=== PATIENT | female | born 1955 | race Two or more races ===

== ENCOUNTER 2022-05-29 04:08 | Inpatient (IN) | payer MEDICARE, OTHER ==
[~2022-05-29] VITALS: Ht 167.6 cm; Wt 150.1 kg
[2022-05-29 04:57] LABS: Basophils # (auto) 0.1 10 ^3/uL (0-0.2); Basophils % (auto) 0.3 % (0.0-2.0); Eosinophils # (auto) 0 10 ^3/uL (0-0.8); Eosinophils % (auto) 0.3 % (0.0-7.0); Hematocrit 33.6 % (36.0-46.0); Hemoglobin 10.5 g/dL (12.2-16.2); Lymphocytes # (auto) 0.5 10 ^3/uL (0.4-5.4); Lymphocytes % (auto) 2.7 % (10.0-50.0); Mean Corpuscular Hemoglobin 23.6 pg (28.0-32.0); Mean Corpuscular Hgb Conc. 31.4 g/dL (32.0-36.0); Mean Corpuscular Volume 75.3 fL (80.0-100.0); Monocytes # (auto) 0.1 10 ^3/uL (0-1.3); Monocytes % (auto) 0.6 % (0.0-12.0); Neutrophils # (auto) 18.4 10 ^3/uL (1.6-8.6); Neutrophils % (auto) 96.1 % (37.0-80.0); Red Blood Cells 4.47 10^6/uL (4.0-5.20); Red Cell Distribution Width 19.7 % (11.8-14.3); White Blood Cell 19.1 10^3/uL (4.4-10.8)
[2022-05-29 05:16] LABS: Albumin 2.8 g/dL (3.4-5.0); Calcium 8.8 mg/dL (8.5-10.1)
[2022-05-29 05:19] LABS: BUN/Creatinine Ratio 10.8; Bilirubin, Total 0.5 mg/dL (0.2-1.0); Total Protein 7.3 g/dL (6.4-8.2)
[2022-05-29 05:20] LABS: Lactic Acid w/Reflex 3.2 mmol/L (0.4-2.0)
[2022-05-29] MEDS ORDERED: MAGNESIUM SULFATE 1GM/100ML 100 ML IV ONE (05:30)
[2022-05-29] MEDS ORDERED: PIPERACILLIN-TAZOB 3.375GM 100 ML IV ONE (05:30)
[2022-05-29] MEDS ORDERED: POTASSIUM CHL 20 Meq TABLET PO ONE ×2 (05:45→10:00)
[2022-05-29] MEDS ORDERED: SODIUM CHLORIDE 0.9% 1,000 ML IV ONE ×2 (08:00)
[2022-05-29] MEDS ORDERED: ENOXAPARIN SOD 150 MG/1 ML SYRINGE SC ONE (08:15)
[2022-05-29] MEDS: cefTRIAXone 1GM/50ML D5W 50 ML IV SCH ×2 (09:00→09:35)
[2022-05-29 09:15] LABS: Cholesterol 143 mg/dL (< 200)
[2022-05-29 09:18] LABS: HDL Cholesterol 56 mg/dL (40-59); LDL Cholesterol 92 mg/dL (< 100); Triglycerides 100 mg/dL (< 150)
[2022-05-29 09:21] LABS: BUN/Creatinine Ratio 10.2; Calcium 8.6 mg/dL (8.5-10.1)
[2022-05-29 09:33] LABS: Potassium 2.7 mmol/L (3.5-5.1)
[2022-05-29 09:41] LABS: Urine Amorphous Crystal MOD /hpf (None Seen); Urine Bacteria FEW /hpf (None Seen); Urine Blood 1+ /uL (Negative); Urine Specific Gravity 1.015 (1.001-1.035); Urine WBC 187 /hpf (0 - 5)
[2022-05-29] MEDS ORDERED: NITROGLYCERIN 0.4 MG SL TAB SL PRN (10:00)
[2022-05-29] MEDS: AZITHROMYCIN 500MG/ 250ML 250 ML IV SCH ×2 (10:00→10:45)
[2022-05-29] MEDS: ENOXAPARIN SOD 40 MG/0.4 ML SYRINGE SC SCH ×2 (10:00→12:38)
[2022-05-29] MEDS ORDERED: GAB100C PO (10:12)
[2022-05-29] MEDS ORDERED: FUROSEMIDE 100 MG/10ML VIAL IV ONE (10:15)
[2022-05-29] MEDS ORDERED: CLINDAMYCIN 600MG IV 50 ML IV ONE (10:15)
[2022-05-29] MEDS ORDERED: GABAPENTIN 100 MG CAP PO SCH (14:00)
[2022-05-29] MEDS: POTASSIUM CHL 20MEQ/100ML 100 ML IV SCH ×2 (14:00→14:08)
[2022-05-29] MEDS: MORPHINE SULFATE INJ 2 MG/ml SYRG IV PRN (16:53)
[2022-05-29 19:45] LABS: Calcium 8.4 mg/dL (8.5-10.1); Potassium 3.1 mmol/L (3.5-5.1)
[2022-05-29 20:00] VITALS: BP 135/52
[2022-05-29 22:00] VITALS: BP 135/52
[2022-05-29] MEDS ORDERED: ACETAMINOPHEN 325 MG TAB PO PRN (22:30)
[2022-05-29] MEDS: HYDROcodone-ACET 5/325MG TAB PO PRN (22:54)
[2022-05-29] MEDS: ONDANSETRON HCL 4 MG/2 ML VIAL IV PRN (22:54)
[2022-05-30] MEDS: MORPHINE SULFATE INJ 2 MG/ml SYRG IV PRN ×4 (02:33→22:42)
[2022-05-30 05:00] VITALS: BP 140/55
[2022-05-30] MEDS: HYDROcodone-ACET 5/325MG TAB PO PRN ×3 (05:36→18:49)
[2022-05-30 09:00] VITALS: BP 114/56
[2022-05-30] MEDS: cefTRIAXone 1GM/50ML D5W 50 ML IV SCH (09:04)
[2022-05-30] MEDS: ENOXAPARIN SOD 40 MG/0.4 ML SYRINGE SC SCH ×2 (09:04→22:40)
[2022-05-30] MEDS ORDERED: POTASSIUM EFFERVESENT TAB 25 MEQ PO ONE (10:00)
[2022-05-30] MEDS ORDERED: MAGNESIUM SULFATE 1GM/100ML 100 ML IV ONE (10:00)
[2022-05-30] MEDS ORDERED: ASPirin 81 mg TAB PO ONE (10:15)
[2022-05-30] MEDS: AZITHROMYCIN 500MG/ 250ML 250 ML IV SCH (11:04)
[2022-05-30] MEDS ORDERED: POTASSIUM CHL 20 Meq TABLET PO ONE (11:30)
[2022-05-30] MEDS ORDERED: PIPERACILLIN-TAZOB 3.375GM 100 ML IV ONE (11:30)
[2022-05-30] MEDS ORDERED: LEVOTHYROXINE SODIUM 50 MCG TAB PO ONE (11:30)
[2022-05-30] MEDS ORDERED: HYDROCORTISONE SOD SUCC 100 MG/2ML INJ VIAL IV ONE (11:30)
[2022-05-30] MEDS: ONDANSETRON HCL 4 MG/2 ML VIAL IV PRN ×3 (11:48→22:42)
[2022-05-30 12:20] LABS: Basophils # (auto) 0 10 ^3/uL (0-0.2); Basophils % (auto) 0.2 % (0.0-2.0); Eosinophils # (auto) 0.1 10 ^3/uL (0-0.8); Lymphocytes # (auto) 1.1 10 ^3/uL (0.4-5.4); Mean Corpuscular Hemoglobin 24.6 pg (28.0-32.0); Mean Corpuscular Hgb Conc. 32.7 g/dL (32.0-36.0); Monocytes # (auto) 0.8 10 ^3/uL (0-1.3); Red Cell Distribution Width 19.4 % (11.8-14.3)
[2022-05-30 12:22] LABS: Eosinophils % (auto) 1.3 % (0.0-7.0); Hematocrit 29.1 % (36.0-46.0); Hemoglobin 9.5 g/dL (12.2-16.2); Lymphocytes % (auto) 11.7 % (10.0-50.0); Mean Corpuscular Volume 75.2 fL (80.0-100.0); Monocytes % (auto) 8.1 % (0.0-12.0); Neutrophils # (auto) 7.4 10 ^3/uL (1.6-8.6); Neutrophils % (auto) 78.7 % (37.0-80.0); Red Blood Cells 3.87 10^6/uL (4.0-5.20); White Blood Cell 9.4 10^3/uL (4.4-10.8)
[2022-05-30 12:49] LABS: BUN/Creatinine Ratio 12.9; Calcium 8.4 mg/dL (8.5-10.1); Potassium 3.4 mmol/L (3.5-5.1)
[2022-05-30 13:00] VITALS: BP 122/77
[2022-05-30 17:00] VITALS: BP 134/70
[2022-05-30 22:00] VITALS: BP 134/60
[2022-05-30] MEDS ORDERED: HYDROCORTISONE SOD SUCC 100 MG/2ML INJ VIAL IV SCH (22:00)
[2022-05-30] MEDS ORDERED: TEMAZEPAM 15 MG CAP PO ONE (22:30)
[2022-05-30] MEDS: PIPERACILLIN-TAZOB 3.375GM 100 ML IV SCH (22:41)
[2022-05-31 04:56] LABS: Basophils # (auto) 0 10 ^3/uL (0-0.2); Eosinophils # (auto) 0 10 ^3/uL (0-0.8); Monocytes # (auto) 0.6 10 ^3/uL (0-1.3)
[2022-05-31 04:59] LABS: Basophils % (auto) 0.2 % (0.0-2.0); Eosinophils % (auto) 0.4 % (0.0-7.0); Hematocrit 30.1 % (36.0-46.0); Hemoglobin 9.9 g/dL (12.2-16.2); Lymphocytes # (auto) 1.2 10 ^3/uL (0.4-5.4); Mean Corpuscular Hemoglobin 24.5 pg (28.0-32.0); Mean Corpuscular Hgb Conc. 32.8 g/dL (32.0-36.0); Mean Corpuscular Volume 74.5 fL (80.0-100.0); Monocytes % (auto) 7.6 % (0.0-12.0); Neutrophils % (auto) 76.8 % (37.0-80.0); Red Blood Cells 4.05 10^6/uL (4.0-5.20); Red Cell Distribution Width 19.4 % (11.8-14.3); White Blood Cell 7.8 10^3/uL (4.4-10.8)
[2022-05-31 05:00] VITALS: BP 145/70
[2022-05-31 06:03] LABS: Calcium 8.7 mg/dL (8.5-10.1); Potassium 3.6 mmol/L (3.5-5.1)
[2022-05-31 06:05] LABS: BUN/Creatinine Ratio 10.3
[2022-05-31] MEDS: PIPERACILLIN-TAZOB 3.375GM 100 ML IV SCH ×3 (06:54→22:00)
[2022-05-31] MEDS: HYDROcodone-ACET 5/325MG TAB PO PRN (06:55)
[2022-05-31] MEDS: LEVOTHYROXINE SODIUM 50 MCG TAB PO SCH (06:55)
[2022-05-31] MEDS ORDERED: HYDROCORTISONE 10 MG TAB PO SCH (10:06)
[2022-05-31 10:11] VITALS: BP 152/88
[2022-05-31] MEDS ORDERED: HYDROCORTISONE 10 MG TAB PO ONE (10:45)
[2022-05-31] MEDS: ASPirin 81 mg TAB PO SCH (10:50)
[2022-05-31] MEDS: ENOXAPARIN SOD 40 MG/0.4 ML SYRINGE SC SCH ×2 (10:50→22:01)
[2022-05-31] MEDS: ONDANSETRON HCL 4 MG/2 ML VIAL IV PRN ×2 (10:52→19:55)
[2022-05-31] MEDS: MORPHINE SULFATE INJ 2 MG/ml SYRG IV PRN ×2 (10:53→19:55)
[2022-05-31] MEDS: GABAPENTIN 100 MG CAP PO SCH ×2 (14:00→22:00)
[2022-05-31 15:14] VITALS: BP 148/72
[2022-05-31 18:00] VITALS: BP 157/83
[2022-05-31 22:00] VITALS: BP 133/68
[2022-05-31] MEDS ORDERED: HYDROCORTISONE 10 MG TAB ONE ×2 (22:27→22:33)
[2022-05-31] MEDS: HYDROCORTISONE 10 MG TAB PO SCH (22:34)
[2022-05-31] MEDS: TEMAZEPAM 15 MG CAP PO PRN (22:38)
[2022-06-01] MEDS: ONDANSETRON HCL 4 MG/2 ML VIAL IV PRN ×4 (01:41→22:11)
[2022-06-01] MEDS: MORPHINE SULFATE INJ 2 MG/ml SYRG IV PRN ×5 (01:42→22:11)
[2022-06-01 05:00] VITALS: BP 158/82
[2022-06-01] MEDS: GABAPENTIN 100 MG CAP PO SCH (06:00)
[2022-06-01] MEDS: PIPERACILLIN-TAZOB 3.375GM 100 ML IV SCH ×3 (06:14→22:09)
[2022-06-01] MEDS: LEVOTHYROXINE SODIUM 50 MCG TAB PO SCH (06:15)
[2022-06-01 09:00] VITALS: BP 151/84
[2022-06-01] MEDS: HYDROCORTISONE 10 MG TAB PO SCH ×2 (10:37→22:09)
[2022-06-01] MEDS: ASPirin 81 mg TAB PO SCH (10:37)
[2022-06-01] MEDS: ENOXAPARIN SOD 40 MG/0.4 ML SYRINGE SC SCH ×2 (10:49→22:09)
[2022-06-01 13:00] VITALS: BP 116/60
[2022-06-01 17:00] VITALS: BP 143/73
[2022-06-01 22:00] VITALS: BP 166/89
[2022-06-01] MEDS: TEMAZEPAM 15 MG CAP PO PRN (22:31)
[2022-06-02] MEDS: MORPHINE SULFATE INJ 2 MG/ml SYRG IV PRN ×4 (04:30→23:01)
[2022-06-02 05:00] VITALS: BP 159/80
[2022-06-02] MEDS: PIPERACILLIN-TAZOB 3.375GM 100 ML IV SCH (06:18)
[2022-06-02] MEDS: LEVOTHYROXINE SODIUM 50 MCG TAB PO SCH (06:18)
[2022-06-02 08:00] VITALS: BP 150/70
[2022-06-02 08:15] VITALS: BP 150/70
[2022-06-02] MEDS ORDERED: PANTOPRAZOLE 40 MG/10 ML VIAL INJ IV ONE (10:45)
[2022-06-02] MEDS ORDERED: cefTRIAXone 1GM/50ML D5W 50 ML IV ONE (10:45)
[2022-06-02] MEDS: ASPirin 81 mg TAB PO SCH (11:15)
[2022-06-02] MEDS: HYDROCORTISONE 10 MG TAB PO SCH ×2 (11:16→21:42)
[2022-06-02] MEDS: ONDANSETRON HCL 4 MG/2 ML VIAL IV PRN ×3 (11:17→21:42)
[2022-06-02 13:00] VITALS: BP 169/92
[2022-06-02] MEDS ORDERED: cloNIDine HCL 0.1 MG TAB PO ONE (16:45)
[2022-06-02 16:54] VITALS: BP 182/93
[2022-06-02] MEDS: cloNIDine HCL 0.1 MG TAB PO SCH (21:41)
[2022-06-02 22:00] VITALS: BP 148/73
[2022-06-02] MEDS: TEMAZEPAM 15 MG CAP PO PRN (23:01)
[2022-06-03 05:00] VITALS: BP 156/94
[2022-06-03] MEDS: MORPHINE SULFATE INJ 2 MG/ml SYRG IV PRN ×2 (05:47→14:24)
[2022-06-03] MEDS: LEVOTHYROXINE SODIUM 50 MCG TAB PO SCH (06:35)
[2022-06-03 08:33] VITALS: BP 166/70
[2022-06-03] MEDS ORDERED: cefTRIAXone 1GM/50ML D5W 50 ML IV SCH (09:00)
[2022-06-03] MEDS: ASPirin 81 mg TAB PO SCH (09:27)
[2022-06-03] MEDS: cloNIDine HCL 0.1 MG TAB PO SCH (09:27)
[2022-06-03] MEDS: HYDROcodone-ACET 5/325MG TAB PO PRN (09:28)
[2022-06-03] MEDS: HYDROCORTISONE 10 MG TAB PO SCH (09:41)
[2022-06-03] MEDS ORDERED: FLORASTOR (S. BOULARDII) 250 MG CAP PO SCH (10:00)
[2022-06-03] MEDS ORDERED: PANTOPRAZOLE 40 MG/10 ML VIAL INJ IV SCH (10:00)
[2022-06-03 13:30] VITALS: BP 139/75
[2022-06-03 13:36] VITALS: BP 166/70
[2022-06-03] MEDS: ONDANSETRON HCL 4 MG/2 ML VIAL IV PRN (14:25)
[2022-06-03 15:00] VITALS: BP 109/75
== END 2022-06-03 15:45 | disposition home health service (06) | DRG 871 ==
LOC: EDBD 04:08 → ER 04:08 → TELE 09:58 → TELE-CENTR 17:36 → CENTRAL 05-31 11:28
PROVIDERS: ADMIT Registered Nurse; ATTEND Internal Medicine
PROC: 05HF33Z Insertion of Infusion Device into Left Cephalic Vein, Percutaneous Approach (ICD-10-PCS; principal; 2022-06-02)
PROC: B54NZZA Ultrasonography of Left Upper Extremity Veins, Guidance (ICD-10-PCS; 2022-06-02)
DX: A41.51 Sepsis due to Escherichia coli [E. coli] (principal); I21.A1 Myocardial infarction type 2; I50.31 Acute diastolic (congestive) heart failure; N17.0 Acute kidney failure with tubular necrosis; J18.9 Pneumonia, unspecified organism; E27.1 Primary adrenocortical insufficiency; N39.0 Urinary tract infection, site not specified; L03.115 Cellulitis of right lower limb; L03.116 Cellulitis of left lower limb; Z68.43 Body mass index [BMI] 50.0-59.9, adult; E87.6 Hypokalemia; E88.09 Other disorders of plasma-protein metabolism, not elsewhere classified; E66.01 Morbid (severe) obesity due to excess calories; D64.9 Anemia, unspecified; E83.42 Hypomagnesemia; I11.0 Hypertensive heart disease with heart failure; E03.9 Hypothyroidism, unspecified; B96.1 Klebsiella pneumoniae [K. pneumoniae] as the cause of diseases classified elsewhere; J45.909 Unspecified asthma, uncomplicated; Z96.653 Presence of artificial knee joint, bilateral; R73.03 Prediabetes; Z91.040 Latex allergy status; Z88.8 Allergy status to other drugs, medicaments and biological substances; Z93.59 Other cystostomy status
CPT/HCPCS: 36415; 71045; 74176; 80048; 80053; 80061; 81001; 83036; 83605; 83615; 83735; 83880; 84443; 84484; 85025; 87040; 87077; 87081; 87086; 87088; 87186; 87493; 93005; 93306; 93970; 96365; 96366; 96367; 96368; 96372; 96375; 99291; C9113; G0378; J0696; J2405; J2543; J3480; J3490

== ENCOUNTER 2025-02-05 13:46 | Inpatient (IN) | payer MEDICARE, OTHER ==
[~2025-02-05] VITALS: Ht 167.6 cm; Wt 58.6 kg
[~2025-02-05 13:46] MED LIST: GAB100C PO
--- NOTE | 2025-02-05 14:11 | ED.PDOC ---
History of Present Illness HPI Comments 69 y.o female with PMHx of recurrent UTI's, HTN, [place]'s disease, and AFIB, presents to the ED via EMS for a chief complaint of generalized weakness associated with SOB, nausea, vomiting, lumbar pain, and a productive cough with green phlegm sputum that all started this morning. EMS reports patient on scene was hypotensive with BG of 112 and SPO2 of 88-89% on room air. Patient arrives to the ED with blood pressure in the 60's systolic. Patient denies any fever, chills, chest pain, vomiting, bloody stool, hematuria, dysuria. Patient has an indwelling catheter in due to the recurrent UTI's. Chief Complaint: General Weakness Time Seen by MD: 13:53 Reviewed Notes: Nurses Notes, Shopper Notes, Medications, Allergies Allergies: Coded Allergies: Carisoprodol (Verified Allergy, Unknown, 05/29/22) Latex (Verified Allergy, Unknown, 05/29/22) Tetracaine (Verified Allergy, Unknown, 05/29/22) Home Meds Reported Medications Gabapentin (Gabapentin) 100 Mg Cap, 1 CAP PO TID 05/29/22 Information Source: Patient, Emergency Med Personnel Mode of Arrival: EMS Severity: Moderate Timing: Hours Duration: Since onset Prehospital treatment: 12 Lead EKG, Accucheck (112), Vest Tailor Past Medical History PAST MEDICAL HISTORY: AFIB, HTN, UTI'S Past Medical History (Other): diana's disease Surgical History: Appendectomy, Tonsillectomy Surgical History (Other): Bilateral knee replacement VESSEL TRAFFIC OFFICER History: No Pertinent VESSEL TRAFFIC OFFICER History Family History Family History: Family hx of DM Social History Smoker: Non-Smoker Alcohol: Denies ETOH Use Drugs: Denies Drug Use Lives In: Home Constitutional: reports: weakness; denies: chills, diaphoresis, fatigue, fever, malaise, sweats, others EENTM: denies: blurred vision, double vision, ear bleeding, ear discharge, ear drainage, ear pain, ear ringing, eye pain, eye redness, hearing loss, mouth pain, mouth swelling, nasal discharge, nose bleeding, nose congestion, nose pain, photophobia, tearing, throat pain, throat swelling, voice changes, others Respiratory: reports: cough, SOB at rest, shortness of breath, SOB with exce rtion; denies: hemoptysis, orthopnea, stridor, wheezing, others Cardiovascular: denies: chest pain, dizzy spells, diaphoresis, Dyspnea on exertion, edema, irregular heart beat, left arm pain, lightheadedness, palpitations, PND, syncope, others Gastrointestinal: reports: diarrhea, nausea; denies: abdomen distended, abdominal pain, blood streaked bowels, constipated, dysphagia, difficulty swallowing, hematemesis, melena, poor appetite, poor fluid intake, rectal bleeding, rectal pain, vomiting, others Genitourinary: denies: abnormal vagina bleeding, burning, dyspareunia, dysuria, flank pain, frequency, hematuria, incontinence, pain, , vagina discharge, urgency, others Neurological: denies: dizziness, fainting, headache, left sided numbness, left sided weakness, numbness, paresthesia, pre-existing deficit, right sided numbness, right sided weakness, seizure, speech problems, tingling, tremors, weakness, others Musculoskeletal: reports: back pain; denies: gout, joint pain, joint swelling, muscle pain, muscle stiffness, neck pain, others Integumetry: denies: bruises, change in color, change in hair/nails, dryness, laceration, lesions, lumps, rash, wounds, others Allergic/Immunocompromised: denies: Difficulty Healing, Frequent Infections, Hives, Itching, others Hematologic/Lymphatic: denies: anemia, blood clots, easy bleeding, easy bruising, swollen glands, others Endocrine: denies: excessive hunger, excessive sweating, excessive thirst, excessive urination, flushing, intolerance to cold, intolerance to heat, unexplained weight gain, unexplained weight loss, others Psychiatric: denies: anxiety, bipolar disorder, depression, hopeless, panic disorder, schizophrenia, sleepless, suicidal, others All Other Systems: Reviewed and Negative Physical Exam General Appearance: Moderate Distress, Obese HEENT: Pale Conjuntivae (L), Pale Conjuntivae (R), Pharynx Normal, TMs Normal Neck: Full Range of Motion, Non-Tender, Normal, Normal Inspection Respiratory: Chest Non-Tender, Lungs Clear, No Accessory Muscle Use, No Respiratory Distress, Normal Breath Sounds Cardiovascular: No Edema, No JVD, No Murmur, No Gallop, Normal Peripheral Pulses, Regular Rate/Rhythm Breast Exam: Deferred Gastrointestinal: No Organomegaly, Non Tender, No Pulsatile Mass, Normal Bowel Sounds, Soft Genitalia: Deferred Pelvic: Deferred Rectal: Deferred Extremities: No calf tenderness, Normal capillary refill, No pedal edema Musculoskeletal : Apperance: Normal Neurologic: Alert, maintenance planner II-XII nml as Tested, Motor Weakness, Normal Affect, Normal Mood, No Sensory Deficits Cerebellar Function: Normal Reflexes: Normal Skin: Dry, Pallor, Warm Lymphatic: No Adenopathy Was a procedure done? Was a procedure done?: No EKG EKG : Pulse Rate (adult): 105 Cardiac Rhythm: ST Differential Dx Considerations may include: Hypotension, Dehydration, Hypoxic, Influenza, URI, Bronchitis, Electrolyte imbalance, Pneumonia X-Ray, Labs, Meds, VS Vital Signs Date Time Temp Pulse Resp B/P (MAP) Pulse Ox O2 Delivery O2 Flow Rate FiO2 02/05/25 14:30 60 18 99 Nasal Cannula* 2 28 02/05/25 14:30 97.5 60 18 91/50 (64) 99 97.5 02/05/25 14:11 105 02/05/25 13:57 99.0 81 26 67/42 (50) 93 99.0 02/05/25 13:51 105 Lab Test 02/05/25 15:17 02/05/25 14:48 02/05/25 14:27 Range/Units Troponin I High Sensitivity 14 16 </=34 ng/L Influenza Type A Antigen Negative Negative Influenza Type B Antigen Negative Negative SARS-CoV-2 Antigen (Rapid) Negative NEGATIVE White Blood Count 22.2 H 4.4-10.8 10^3/uL Red Blood Count 4.02 4.0-5.20 10^6/uL Hemoglobin 11.2 L 12.2-16.2 g/dL Hematocrit 34.0 L 36.0-46.0 % Mean Corpuscular Volume 84.6 80.0-100.0 fL Mean Corpuscular Hemoglobin 27.7 L 28.0-32.0 pg Mean Corpuscular Hemoglobin Concent 32.8 32.0-36.0 g/dL Red Cell Distribution Width 18.6 H 11.8-14.3 % Platelet Count 285 140-450 10^3/uL Mean Platelet Volume 8.1 6.9-10.8 fL Neutrophils (%) (Auto) 83.8 H 37.0-80.0 % Lymphocytes (%) (Auto) 7.1 L 10.0-50.0 % Monocytes (%) (Auto) 8.0 0.0-12.0 % Eosinophils (%) (Auto) 0.2 0.0-7.0 % Basophils (%) (Auto) 0.9 0.0-2.0 % Neutrophils # (Auto) 18.6 H 1.6-8.6 10 ^3/uL Lymphocytes # (Auto) 1.6 0.4-5.4 10 ^3/uL Monocytes # (Auto) 1.8 H 0-1.3 10 ^3/uL Eosinophils # (Auto) 0.1 0-0.8 10 ^3/uL Basophils # (Auto) 0.2 0-0.2 10 ^3/uL Nucleated Red Blood Cells 0.0 % Prothrombin Time Pending Prothrombin Time INR Pending Sodium Level 131 L 136-145 mmol/L Potassium Level 2.6 L 3.5-5.1 mmol/L Chloride Level 93 L 98-107 mmol/L Carbon Dioxide Level 27 20-31 mmol/L Anion Gap 11 5-15 Blood Urea Nitrogen 65 H 9-23 mg/dL Creatinine 2.20 H 0.550-1.02 mg/dL Glomerular Filtration Rate Calc 24 >90 mL/min BUN/Creatinine Ratio 29.5 H 10.0-20.0 Serum Glucose 87 74-106 mg/dL Lactic Acid Level 1.8 0.4-2.0 mmol/L Calcium Level 9.5 8.7-10.4 mg/dL Current Medications Medications (Trade) Dose Ordered Sig/Gricelda Route Start Time Stop Time Status Last Admin Sodium Chloride 1,000 ml @ 150 mls/hr Q6H40M ONCE IV 02/05/25 14:15 02/05/25 20:54 02/05/25 14:46 XY CHEST PORTABLE, IMPRESSION: Cardiomegaly with interstitial pulmonary edema. IV Hep-Lock was established The patient had normal saline ordered per sepsis protocol The lactic acid level is 1.8 The patient was BUN is 65 and the creatinine is 2.2 The potassium is low at 2.6 the patient was being given potassium The patient was hyponatremic and hypochloremic The [place] an [place] [address] The urine test is pending The influenza a, influenza B and COVID test are all negative The troponin level x2 is negative At this time, the patient will be admitted to the hospitalist The patient was being given potassium at this time The patient was somewhat hypotensive so we did start the patient on Levophed We did order a PICC line on this patient was well Images Reviewed?: Images reviewed and evaluated by me Time of 1ST Reevaluation: 14:05 Reevaluation 1ST: Unchanged Patient Education/Counseling: Diagnosis, Treatment, Prognosis Family Education/Counseling: No Family Present Departure 1 Departure Time of Disposition: 16:08 Impression: Primary Impression: Sepsis due to urinary tract infection Additional Impressions: Hypotension Qualified Codes: I95.9 - Hypotension, unspecified Generalized weakness Hypokalemia Hyponatremia Disposition: ADMITTED INPATIENT Admit to: ICU Condition: Fair Critical Care Note Critical Care Time?: Yes (55 min-critical care time only) Stability Stability form required: Yes Unstable for transfer: ICU, CCU, PCU, LAVELL (Intensive VS monitoring), ED Physician Assesment (Clinical assesment) Heart Score Heart Score: Heart Score Response (Comments) Value History Moderate Suspicious 1 EKG Normal 0 Age 45-64 1 Risk Factors >3 or Hx ASHD 2 Troponin Normal limit 0 Total 4 I personally scribed for MARITO MORENO MD ([email or web address]) on 02/05/25 at 14:11. Electronically submitted by Sonia Roman ([employer]). I personally scribed for MARITO MORENO MD ([email or web address]) on 02/05/25 at 15:24. Electronically submitted by Sonia Roman ([employer]). MARITO MORENO MD Feb 05, 2025 14:11
[2025-02-05 14:30] VITALS: PULSE 60; RESP 18; O2SAT 99
[2025-02-05 14:44] LABS: Basophils # (auto) 0.2 10 ^3/uL (0-0.2); Basophils % (auto) 0.9 % (0.0-2.0); Eosinophils # (auto) 0.1 10 ^3/uL (0-0.8); Eosinophils % (auto) 0.2 % (0.0-7.0); Hemoglobin 11.2 g/dL (12.2-16.2); Lymphocytes # (auto) 1.6 10 ^3/uL (0.4-5.4); Lymphocytes % (auto) 7.1 % (10.0-50.0); Mean Corpuscular Hemoglobin 27.7 pg (28.0-32.0); Mean Corpuscular Hgb Conc. 32.8 g/dL (32.0-36.0); Mean Corpuscular Volume 84.6 fL (80.0-100.0); Monocytes # (auto) 1.8 10 ^3/uL (0-1.3); Neutrophils # (auto) 18.6 10 ^3/uL (1.6-8.6); Neutrophils % (auto) 83.8 % (37.0-80.0); Platelet Count (auto) 285 10^3/uL (140-450); Red Blood Cells 4.02 10^6/uL (4.0-5.20); Red Cell Distribution Width 18.6 % (11.8-14.3); White Blood Cell 22.2 10^3/uL (4.4-10.8)
[2025-02-05] MEDS: SODIUM CHLORIDE 0.9% 1,000 ML IV ONE (14:46)
--- NOTE | 2025-02-05 14:51 | DVH ---
XY CHEST PORTABLE, HISTORY: weakness COMPARISON: CHEST PORTABLE on DOS: 05/30/22, CHEST PORTABLE on DOS: 05/29/22 CHEST PORTABLE on DOS: 05/30/22, CHEST PORTABLE on DOS: 05/29/22 TECHNICAL DATA: 1 view of the chest was obtained. FINDINGS: Lines and tubes: None Cardiomediastinal silhouette: enlarged Pulmonary vasculature: normal Lung expansion: normal Lung airspace: normal Lung interstitium: prominent Pleura: normal Pneumothorax: no Bones: Unremarkable Other: no IMPRESSION: Cardiomegaly with interstitial pulmonary edema.
[2025-02-05 14:52] LABS: Anion Gap 11 (5-15); Calcium 9.5 mg/dL (8.7-10.4); Carbon Dioxide 27 mmol/L (20-31)
[2025-02-05 14:57] LABS: BUN/Creatinine Ratio 29.5 (10.0-20.0); Glucose 87 mg/dL (74-106)
[2025-02-05 14:58] LABS: Blood Urea Nitrogen 65 mg/dL (9-23); Chloride 93 mmol/L (98-107); Potassium 2.6 mmol/L (3.5-5.1); Sodium 131 mmol/L (136-145)
[2025-02-05 15:50] LABS: COVID19 ANTIGEN SOFIA FIA NEGATIVE (NEGATIVE)
[2025-02-05 15:51] LABS: Rapid Influenza A Negative (Negative); Rapid Influenza B Negative (Negative)
[2025-02-05] MEDS: VANCOMYCIN 1GM/200ML PM 200 ML IV ONE (16:15)
[2025-02-05] MEDS ORDERED: POTASSIUM CHL 20MEQ/100ML 100 ML IV ONE (16:15)
[2025-02-05] MEDS ORDERED: DOCUSATE SOD 100 MG CAP PO PRN (16:30)
[2025-02-05] MEDS: cefTRIAXone 1GM/50ML D5W 50 ML IV ONE (16:30)
[2025-02-05] MEDS: PIPERACILLIN-TAZOB 3.375GM 100 ML IV SCH (16:30)
[2025-02-05] MEDS ORDERED: ONDANSETRON HCL 4 MG/2 ML VIAL IV PRN (16:30)
--- NOTE | 2025-02-05 16:38 | DVHHP2 ---
Admitting Diagnosis: Shortness of breaths History of Present Illness 69 y.o female with PMHx of recurrent UTI's, HTN, [place]'s disease, and AFIB, presents to the ED via EMS for a chief complaint of generalized weakness associated with SOB, nausea, vomiting, lumbar pain, and a productive cough with green phlegm sputum that all started this morning. EMS reports patient on scene was hypotensive with BG of 112 and SPO2 of 88-89% on room air. Patient arrives to the ED with blood pressure in the 60's systolic. Patient denies any fever, chills, chest pain, vomiting, bloody stool, hematuria, dysuria. Patient has an indwelling catheter in due to the recurrent UTI's. PAST MEDICAL HISTORY: AFIB, HTN, UTI'S Past Medical History (Other): diana's disease Surgical History: Appendectomy, Tonsillectomy Surgical History (Other): Bilateral knee replacement FASHION ADVISER History: No Pertinent FASHION ADVISER History Family History Family History: Family hx of DM Social History Smoker: Non-Smoker Alcohol: Denies ETOH Use Drugs: Denies Drug Use Lives In: Home Patient Family History: FH: cancer Allergies: Coded Allergies: Carisoprodol (Verified Allergy, Unknown, 05/29/22) Latex (Verified Allergy, Unknown, 05/29/22) Tetracaine (Verified Allergy, Unknown, 05/29/22) Home Meds Reported Medications Gabapentin (Gabapentin) 100 Mg Cap, 1 CAP PO TID 05/29/22 Current Medications Current Medications Medications (Trade) Dose Ordered Sig/Gricelda Route PRN Reason Start Time Stop Time Status Last Admin Norepinephrine Bitartrate 250 ml @ 3.75 mls/hr Q24H IV 02/05/25 15:30 Piperacillin Sod/ Tazobactam Sod 100 ml @ 100 mls/hr Q8H IV 02/05/25 16:30 Apixaban (Eliquis) 5 mg BID PO 02/05/25 22:00 Sodium Chloride (Saline Lock Ns) 10 ml Q8HR IV 02/05/25 22:00 Docusate Sodium (Colace Capsule) 100 mg BIDPRN PRN PO FOR CONSTIPATION 02/05/25 16:30 Acetaminophen (Tylenol Tablet) 650 mg Q6HP PRN PO PAIN SCALE 1-3 OR TEMP>100.4 02/05/25 16:30 Acetaminophen/ Hydrocodone Bitart (Rusk 5/325MG Tab) 1 tab Q4HP PRN PO MODERATE PAIN (4-6 PAIN SCALE) 02/05/25 16:30 Ondansetron HCl (Zofran) 4 mg Q4HP PRN IV NAUSEA / VOMITING 02/05/25 16:30 UNV Vital Signs Vital Signs Date Time Temp Pulse Resp B/P (MAP) Pulse Ox O2 Delivery O2 Flow Rate FiO2 02/05/25 14:30 60 18 99 Nasal Cannula* 2 28 02/05/25 14:30 97.5 91/50 (64) 97.5 Physical Exam Generally 70 years old woman, morbidly obese, lying in bed. Mild respiratory distress HEENT-atraumatic, normocephalic Heart-regular rate and rhythm Lungs decreased breath sounds bilaterally Abdomen soft nontender nondistended Musculoskeletal-pitting edema with chronic venous stasis Neuro-awake, alert, answering some questions, follows simple commands Results Labs Test 02/05/25 15:17 02/05/25 14:48 02/05/25 14:27 Range/Units Troponin I High Sensitivity 14 </=34 ng/L Influenza Type A Antigen Negative Negative Influenza Type B Antigen Negative Negative SARS-CoV-2 Antigen (Rapid) Negative NEGATIVE White Blood Count 22.2 H 4.4-10.8 10^3/uL Red Blood Count 4.02 4.0-5.20 10^6/uL Hemoglobin 11.2 L 12.2-16.2 g/dL Hematocrit 34.0 L 36.0-46.0 % Mean Corpuscular Volume 84.6 80.0-100.0 fL Mean Corpuscular Hemoglobin 27.7 L 28.0-32.0 pg Mean Corpuscular Hemoglobin Concent 32.8 32.0-36.0 g/dL Red Cell Distribution Width 18.6 H 11.8-14.3 % Platelet Count 285 140-450 10^3/uL Mean Platelet Volume 8.1 6.9-10.8 fL Neutrophils (%) (Auto) 83.8 H 37.0-80.0 % Lymphocytes (%) (Auto) 7.1 L 10.0-50.0 % Monocytes (%) (Auto) 8.0 0.0-12.0 % Eosinophils (%) (Auto) 0.2 0.0-7.0 % Basophils (%) (Auto) 0.9 0.0-2.0 % Neutrophils # (Auto) 18.6 H 1.6-8.6 10 ^3/uL Lymphocytes # (Auto) 1.6 0.4-5.4 10 ^3/uL Monocytes # (Auto) 1.8 H 0-1.3 10 ^3/uL Eosinophils # (Auto) 0.1 0-0.8 10 ^3/uL Basophils # (Auto) 0.2 0-0.2 10 ^3/uL Nucleated Red Blood Cells 0.0 % Sodium Level 131 L 136-145 mmol/L Potassium Level 2.6 L 3.5-5.1 mmol/L Chloride Level 93 L 98-107 mmol/L Carbon Dioxide Level 27 20-31 mmol/L Anion Gap 11 5-15 Blood Urea Nitrogen 65 H 9-23 mg/dL Creatinine 2.20 H 0.550-1.02 mg/dL Glomerular Filtration Rate Calc 24 >90 mL/min BUN/Creatinine Ratio 29.5 H 10.0-20.0 Serum Glucose 87 74-106 mg/dL Lactic Acid Level 1.8 0.4-2.0 mmol/L Calcium Level 9.5 8.7-10.4 mg/dL Primary Diagnosis Breaths likely due to bilateral pneumonia versus CHF exacerbation Septic shock likely due to pneumonia KERRY on CKD Plan Chest x-ray shows pulmonary for possible superimposed pneumonia Vanc and Zosyn for broad-spectrum antibiotics Check blood culture, sputum culture Patient is on pressors started in ED Map goal greater than 65 Dr. Rubalcava consult for KERRY on CKD Renal ultrasound Daily weight Fluid restriction Strict in and out Check echo of the heart for possible CHF exacerbation Hypertensives Resume Eliquis 5 mg b.i.d. for AFib. Cardiac diet Full code Eliquis for DVT prophylaxis No GI prophylaxis needed Plan discussed with: Patient Problems List: (1) Sepsis due to urinary tract infection Status: Acute (2) Hypokalemia Status: Acute (3) Generalized weakness Status: Acute Date of Service: Feb 05, 2025 Billing Provider: JLUIS CHASE MD Common Visit Codes: 15024-UDCYBUG INP/OBS CARE (HIGH) JLUIS CHASE MD Feb 05, 2025 16:38
[2025-02-05 16:41] LABS: INR 1.06 (0.9-1.15); Prothrombin Time 11.2 sec (9.3-11.8)
[2025-02-05 16:43] LABS: Urine Amorphous Crystal FEW /hpf (None Seen); Urine Bacteria FEW /hpf (None Seen); Urine Blood 1+ /uL (Negative); Urine Clarity Clear (Clear); Urine Color Light-Yellow (Yellow); Urine Hyaline Cast FEW /lpf (0 - 2); Urine Protein, UAD Negative (Negative); Urine Squamous Epithelial Cell FEW /hpf (<5); Urine Urobilinogen Normal (Negative); Urine WBC 13 /HPF (0-5); Urine pH 7.5 (5.0-9.0)
[2025-02-05] MEDS: POTASSIUM CHL 20MEQ/50ML 50 ML IV ONE (16:45)
[2025-02-05] MEDS: POTASSIUM CHL 20 Meq TABLET PO ONE (17:21)
[2025-02-05 19:55] VITALS: PULSE 61; RESP 18; O2SAT 99
[2025-02-05] MEDS: SODIUM CHLOR 0.9% PF (SALINE LOCK) 10ML VIAL/SYR IV SCH (22:00)
[2025-02-05] MEDS: APIXABAN 5 MG TAB PO SCH (22:00)
[2025-02-05] MEDS: NOREPINEPHRINE 8 MG/250ML KIT 250 ML IV SCH (23:22)
[2025-02-06] VITALS (25 sets, daily range): BP systolic 110–139; BP diastolic 29–63; PULSE 68–79; RESP 12–20; TEMP 97.8–98.3; O2SAT 70–100
[2025-02-06] MEDS: HYDROcodone-ACET 5/325MG TAB PO PRN (03:38)
[2025-02-06] MEDS: ACETAMINOPHEN 325 MG TAB PO PRN (03:38)
[2025-02-06 06:25] LABS: Basophils # (auto) 0 10 ^3/uL (0-0.2); Basophils % (auto) 0.1 % (0.0-2.0); Eosinophils # (auto) 0.1 10 ^3/uL (0-0.8); Eosinophils % (auto) 0.7 % (0.0-7.0); Hematocrit 33.2 % (36.0-46.0); Lymphocytes # (auto) 2.1 10 ^3/uL (0.4-5.4); Lymphocytes % (auto) 10.8 % (10.0-50.0); Mean Corpuscular Hgb Conc. 33.2 g/dL (32.0-36.0); Mean Corpuscular Volume 84.4 fL (80.0-100.0); Monocytes # (auto) 0.9 10 ^3/uL (0-1.3); Monocytes % (auto) 4.5 % (0.0-12.0); Neutrophils # (auto) 16.3 10 ^3/uL (1.6-8.6); Neutrophils % (auto) 83.9 % (37.0-80.0); Platelet Count (auto) 261 10^3/uL (140-450); Red Blood Cells 3.93 10^6/uL (4.0-5.20); Red Cell Distribution Width 18.3 % (11.8-14.3); White Blood Cell 19.5 10^3/uL (4.4-10.8)
[2025-02-06 06:54] LABS: Alanine Aminotransferase 13 U/L (7-40); Albumin 3.7 g/dL (3.2-4.8); Alkaline Phosphatase 114 U/L (46-116); Anion Gap 12 (5-15); BUN/Creatinine Ratio 33.3 (10.0-20.0); Bilirubin, Total 0.6 mg/dL (0.2-1.0); Calcium 9.7 mg/dL (8.7-10.4); Carbon Dioxide 28 mmol/L (20-31); Glucose 88 mg/dL (74-106); Magnesium 2.1 mg/dL (1.6-2.6); Potassium 3.6 mmol/L (3.5-5.1); Total Protein 6.4 g/dL (5.7-8.2)
[2025-02-06 07:00] LABS: Aspartate Aminotransferase 13 U/L (13-40); Blood Urea Nitrogen 52 mg/dL (9-23); Chloride 94 mmol/L (98-107); Sodium 134 mmol/L (136-145)
--- NOTE | 2025-02-06 11:59 | ECG ---
[facility] Test Date: 2025-02-05 Test Time: 13:51:30 Pat Name: GUSTAVO HANCOCK Department: ED Room: 0250T Gender: F Doorshaker: lashawn : 1955 Requested By: EMERGENCY EMERGENCY Order Number: [id number] Reading MD: Ivan Hall Measurements Intervals [place] Rate: 105 P: 50 ID: [id number] QRS: 11 QRSD: 127 T: 96 QT: 499 QTc: 660 Interpretive Statements Sinus tachycardia with irregular rate Nonspecific intraventricular conduction delay Nonspecific T abnormalities, lateral leads Electronically Signed On 02-08-2025 17:06:13 PDT by Ivan Hall Please click the below link to view image of tracing.
[2025-02-06] MEDS ORDERED: MORPHINE SULFATE INJ 2 MG/ml SYRG IV PRN (12:30)
[2025-02-06] MEDS ORDERED: VANCOMYCIN PER PHARMACY 0 MG IV SCH (12:30)
--- NOTE | 2025-02-06 12:35 | DVHPN2 ---
Progress Note Date Seen: Feb 06, 2025 Medical Necessity Reason Pt with a Central, PICC or Fol: No Subjective Patient reports: No new complaints Review of Systems: HEENT:Normal, CVS:Normal, RESPIRATORY:Normal, GI:Normal, :Normal, MSK:Normal, NEURO:Normal Objective vital signs Vital Sign Date Time Temp Pulse Resp B/P (MAP) Pulse Ox O2 Delivery O2 Flow Rate FiO2 02/06/25 10:00 12 95 Room Air* 0 21 02/06/25 10:00 75 02/06/25 07:47 97.8 123/42 (69) 97.8 Total Intake and Output 02/05/25 02/05/25 02/06/25 15:00 23:00 07:00 Intake Total 50 ml 775 ml 30.00 ml Output Total 3600 ml Balance 50 ml 775 ml -3570.00 ml medications Current Medications Medications Dose Ordered Sig/Gricelda Route Start Time Stop Time Status Last Admin Dose Admin Norepinephrine Bitartrate 250 ml @ 3.75 mls/hr Q24H IV 02/05/25 15:30 02/05/25 23:22 3.75 MLS/HR Piperacillin Sod/ Tazobactam Sod 100 ml @ 100 mls/hr Q8H IV 02/05/25 16:30 02/06/25 09:23 100 MLS/HR Apixaban 5 mg BID PO 02/05/25 22:00 02/06/25 10:41 5 MG Sodium Chloride 10 ml Q8HR IV 02/05/25 22:00 02/06/25 05:26 10 ML Docusate Sodium 100 mg BIDPRN PRN PO 02/05/25 16:30 Acetaminophen 650 mg Q6HP PRN PO 02/05/25 16:30 02/06/25 03:38 650 MG Acetaminophen/ Hydrocodone Bitart 1 tab Q4HP PRN PO 02/05/25 16:30 02/06/25 03:38 1 TAB Ondansetron HCl 4 mg Q4HP PRN IV 02/05/25 16:30 Examination: GENERAL:Normal, HEENT:Normal, NECK:Normal, LUNGS:Normal, CVS:Normal, ABDOMEN:Normal, MSK:Normal, MSK:Abnormal (cellulitis both legs), SKIN:Normal, NEURO:Normal, :Normal laboratory and microbiology Laboratory Tests 02/06/25 05:20 Test 02/06/25 05:20 Range/Units Serum Glucose 88 74-106 mg/dL Microbiology Date/Time Source Procedure Growth Status 02/05/25 14:27 Blood Blood Culture - Preliminary Resulted Problem List/Assessment/Plan Problem List/Assessment/Plan 1. Septic shock with ? urinary tract infection: iv antibiotics, was on levophed 2. Cellulitis of both lower extremities. 3. [place]'s disease: iv hydrocortisone 4. Hypothyroidism: on levothyroxine 5. Morbid obesity. 6. Chronic suprapubic catheter : urology consult for change 7 h/o Hypertension. 8. Acute renal failure, likely vasomotor nephropathy. 9 h/o a fib #10 sleep apnea: bipap #11 ? acute diastolic heart failure Plan discussed with: Patient Critical Care Time (mins): 38 (critical care time 38 mins) Date of Service: Feb 06, 2025 Billing Provider: JESSA GREER MD Common Visit Codes: [id number]-[id number] CARE 30-74 MIN JESSA GREER MD Feb 06, 2025 12:35
--- NOTE | 2025-02-06 13:01 | DVH ---
INDICATION: ckd TECHNIQUE: Multiple real-time sonographic images of the kidneys were obtained. COMPARISON: None FINDINGS: The right kidney measures 10.4 cm in length, which is normal in size. There is normal echog enicity of the right kidney. No hydronephrosis. There is a cyst in the lower pole measuring 3.6 x 3.0 x 3.6 cm. The left kidney measures 10.3 cm in length, which is normal in size. There is normal echogenicity of the left kidney. No hydronephrosis. Urinary bladder not imaged. IMPRESSION: 1. No acute finding. Right renal cyst.
[2025-02-06] MEDS: HYDROCORTISONE SOD SUCC 100 MG/2ML INJ VIAL IV ONE (13:28)
[2025-02-06] MEDS: OXYCODONE W/ ACETAMINOPHEN 5/325MG TABLET PO PRN (13:29)
--- NOTE | 2025-02-06 15:18 | DVHINCON2 ---
Date of service: Feb 06, 2025 Referring Physician Zan Reason for Consultation SPT change History of Present Illness History Source: Patient, RN Notes, MD Notes Exam Limitations: No limitations HPI 69 yo morbidly obese female with hx of recurrent UTIs with chronic SPT changed every 3 weeks at pts primary urologist office in [place]. Presents to the ED via EMS for a chief complaint of generalized weakness associated with SOB, nausea, vomiting, lumbar pain, and a productive cough with green phlegm sputum that all started this morning. EMS reports patient on scene was hypotensive with BG of 112 and SPO2 of 88-89% on room air. Patient arrives to the ED with blood pressure in the 60's systolic. Patient denies any fever, chills, chest pain, vo miting, bloody stool, hematuria, dysuria. Patient has an indwelling catheter in due to the recurrent UTI's. Home Meds Reported Medications Gabapentin (Gabapentin) 100 Mg Cap, 1 CAP PO TID 05/29/22 Past Medical History Patient Family History: Alcoholism G8 FATHER Diabetes mellitus G8 FATHER G8 BROTHER FH: cancer Review of Systems Constitutional: Malaise Pulmonary/Respiratory: Cough H&P Exam Vital Signs Vital Signs Date Time Temp Pulse Resp B/P (MAP) Pulse Ox O2 Delivery O2 Flow Rate FiO2 02/06/25 13:00 68 16 115/39 (64) 90 02/06/25 12:00 98.3 98.3 02/06/25 10:00 Room Air* 0 21 General Appeara: Well developed, Well nourished, Normal Appearance, Obese, Moderate distress Neuro/Mental St: Alert, Oriented Appearance: Appropriate appearance, Appropriate insight Eye contact/ Speech: Cooperative, Good eye contact, Normal speech Skin Exam: Normal inspection, Normal color, Warm/dry Labs/Xrays [address] [address] Ph: [phone] DIAGNOSTIC IMAGING Diagnostic Imaging Report : [id number] Signed PATIENT: GUSTAVO HANCOCK ACCT: [id number] UNIT: [id number] : 1955 LOC: OVERFLOW ROOM / BED: [address] [place] [id number] AGE / SEX: 69 / F ADM STATUS: ADM IN SERVICE 1147 ORDERING PHYSICIAN: MARIA C SHANE RESIDENT PROCEDURE(s): KIDUS - KIDNEY REASON: ckd ORDER NUMBER(s): [id number], ACCESSION NUMBER(s): [id number] INDICATION: ckd TECHNIQUE: Multiple real-time sonographic images of the kidneys were obtained. COMPARISON: None FINDINGS: The right kidney measures 10.4 cm in length, which is normal in size. There is normal echogenicity of the right kidney. No hydronephrosis. There is a cyst in the lower pole measuring 3.6 x 3.0 x 3.6 cm. The left kidney measures 10.3 cm in length, which is normal in size. There is normal echogenicity of the left kidney. No hydronephrosis. Urinary bladder not imaged. IMPRESSION: 1. No acute finding. Right renal cyst. ATED BY: ALIE ROSS MD DICTATED DATE/TIME: 02/06/25 1259 SIGNED BY: ALIE ROSS MD SIGNED DATE/TIME: 02/06/25 1259 CC: Labs Test 02/06/25 05:20 02/05/25 17:17 02/05/25 16:26 02/05/25 14:48 Range/Units White Blood Count 19.5 H 4.4-10.8 10^3/uL Red Blood Count 3.93 L 4.0-5.20 10^6/uL Hemoglobin 11.0 L 12.2-16.2 g/dL Hematocrit 33.2 L 36.0-46.0 % Mean Corpuscular Volume 84.4 80.0-100.0 fL Mean Corpuscular Hemoglobin 28.0 28.0-32.0 pg Mean Corpuscular Hemoglobin Concent 33.2 32.0-36.0 g/dL Red Cell Distribution Width 18.3 H 11.8-14.3 % Platelet Count 261 140-450 10^3/uL Mean Platelet Volume 8.3 6.9-10.8 fL Neutrophils (%) (Auto) 83.9 H 37.0-80.0 % Lymphocytes (%) (Auto) 10.8 10.0-50.0 % Monocytes (%) (Auto) 4.5 0.0-12.0 % Eosinophils (%) (Auto) 0.7 0.0-7.0 % Basophils (%) (Auto) 0.1 0.0-2.0 % Neutrophils # (Auto) 16.3 H 1.6-8.6 10 ^3/uL Lymphocytes # (Auto) 2.1 0.4-5.4 10 ^3/uL Monocytes # (Auto) 0.9 0-1.3 10 ^3/uL Eosinophils # (Auto) 0.1 0-0.8 10 ^3/uL Basophils # (Auto) 0 0-0.2 10 ^3/uL Nucleated Red Blood Cells 0.0 % Sodium Level 134 L 136-145 mmol/L Potassium Level 3.6 3.5-5.1 mmol/L Chloride Level 94 L 98-107 mmol/L Carbon Dioxide Level 28 20-31 mmol/L Anion Gap 12 5-15 Blood Urea Nitrogen 52 #H 9-23 mg/dL Creatinine 1.56 H 0.550-1.02 mg/dL Glomerular Filtration Rate Calc 36 >90 mL/min BUN/Creatinine Ratio 33.3 H 10.0-20.0 Serum Glucose 88 74-106 mg/dL Calcium Level 9.7 8.7-10.4 mg/dL Phosphorus Level 4.3 2.4-5.1 mg/dL Magnesium Level 2.1 1.6-2.6 mg/dL Total Bilirubin 0.6 0.2-1.0 mg/dL Aspartate Amino Transferase (AST) 13 13-40 U/L Alanine Aminotransferase (ALT) 13 7-40 U/L Alkaline Phosphatase 114 46-116 U/L Total Protein 6.4 5.7-8.2 g/dL Albumin 3.7 3.2-4.8 g/dL Vitamin D 25-Hydroxy 32.3 30.0-100 ng/mL Thyroid Stimulating Hormone (TSH) 0.91 0.55-4.78 uIU/mL Parathyroid Hormone (Intact) 30.2 18.4-80.1 pg/mL Troponin I High Sensitivity 13 </=34 ng/L Urine Color Light-yellow Yellow Urine Clarity Clear Clear Urine pH 7.5 5.0-9.0 Urine Specific [place] 1.010 1.001-1.035 Urine Protein Negative Negative Urine Ketones Negative Negative Urine Blood 1+ H Negative /uL Urine Nitrite Negative Negative Urine Bilirubin Negative Negative Urine Urobilinogen Normal Negative mg/dL Urine Leukocyte Esterase 3+ Negative /uL Urine RBC 4 0 - 4 /hpf Urine Microscopic WBC 13 H 0-5 /HPF Urine Squamous Epithelial Cells Few <5 /hpf Urine Amorphous Crystals Few None Seen /hpf Urine Bacteria Few H None Seen /hpf Urine Hyaline Casts Few 0 - 2 /lpf Urine Glucose Normal Normal mg/dL Influenza Type A Antigen Negative Negative Influenza Type B Antigen Negative Negative SARS-CoV-2 Antigen (Rapid) Negative NEGATIVE Test 02/05/25 14:27 Range/Units Prothrombin Time 11.2 9.3-11.8 sec Prothrombin Time INR 1.06 0.9-1.15 Lactic Acid Level 1.8 0.4-2.0 mmol/L C-Reactive Protein High Sensitivity 7.00 H <1.0 mg/dL B-Type Natriuretic Peptide 185.43 0-100 pg/mL Microbiology Date/Time Source Procedure Growth Status 02/05/25 14:27 Blood Blood Culture - Preliminary Resulted Assessment/Plan Problem List: (1) Chronic suprapubic catheter (2) Generalized weakness (3) Hyponatremia (4) Hypotension (5) Hypokalemia (6) Sepsis due to urinary tract infection (7) Elevated troponin Plan SPT exchanged with latex free 18F patient normally has a 20 F however this was not available in latex free. f/u urology as scheduled signing off Plan discussed with: Patient, Other BLANCA GONZALEZ CLINICAL PROGRAM DIRECTOR Feb 06, 2025 15:18
--- NOTE | 2025-02-06 16:02 | DVHCONRES ---
Date Seen: Feb 06, 2025 Resident Creating Document: MARIA C SHANE RESIDENT Referring Physician Reason for Consultation KERRY on CKD History of Present Illness This is a 69-year-old female with a past medical history of atrial fibrillation,morbid obesity, hypothyroidism, sleep apnea, hypertension, Addisons disease, recurrent urinary tract infections, overflow incontinence with suprapubic catheter placement (patient reports catheter change every 3 weeks),chronic bilateral lower extremity lymphedema that predispose her to recurrent cellulitis episodes. The patient presented to the hospital with complaints of generalized weakness, shortness of breath, and production of green-tinged sputum. She denies smoking, alcohol use, or illicit drug use.Laboratory workup revealed persistent leukocytosis, which decreased from 22,000 to 19,000 cells/mm, hemoglobin of 11 g/dL, mild hyponatremia, and evidence of acute kidney injury (elevated creatinine and BUN). Urinalysis showed 1+ hematuria and positive findings consistent with urinary tract infection. Chest X-ray demonstrated cardiomegaly with pulmonary edema.Given the clinical signs of volume overload and pulmonary edema, intravenous fluids were discontinued. Empiric antibiotics were continued. Further workup was initiated including a renal ultrasound and urine studies. Past Medical History atrial fibrillation, hypertension, Addisons disease, recurrent urinary tract infections, overflow incontinence with suprapubic catheter placement (patient reports catheter change every 3 weeks),chronic bilateral lower extremity lymphedema Family History: Alcoholism G8 FATHER Diabetes mellitus G8 FATHER G8 BROTHER FH: cancer Allergies: Coded Allergies: Carisoprodol (Verified Allergy, Unknown, 05/29/22) Latex (Verified Allergy, Unknown, 05/29/22) Tetracaine (Verified Allergy, Unknown, 05/29/22) Home Meds Reported Medications Gabapentin (Gabapentin) 100 Mg Cap, 1 CAP PO TID 05/29/22 Current Medications Current Medications Medications (Trade) Dose Ordered Sig/Gricelda Route PRN Reason Start Time Stop Time Status Last Admin Piperacillin Sod/ Tazobactam Sod 100 ml @ 100 mls/hr Q8H IV 02/05/25 16:30 02/06/25 09:23 Apixaban (Eliquis) 5 mg BID PO 02/05/25 22:00 02/06/25 10:41 Sodium Chloride (Saline Lock Ns) 10 ml Q8HR IV 02/05/25 22:00 02/06/25 05:26 Docusate Sodium (Colace Capsule) 100 mg BIDPRN PRN PO FOR CONSTIPATION 02/05/25 16:30 Acetaminophen (Tylenol Tablet) 650 mg Q6HP PRN PO PAIN SCALE 1-3 OR TEMP>100.4 02/05/25 16:30 02/06/25 03:38 Acetaminophen/ Hydrocodone Bitart (Pelican 5/325MG Tab) 1 tab Q4HP PRN PO MODERATE PAIN (4-6 PAIN SCALE) 02/05/25 16:30 02/06/25 12:33 DC 02/06/25 03:38 Ondansetron HCl (Zofran) 4 mg Q4HP PRN IV NAUSEA / VOMITING 02/05/25 16:30 Hydrocortisone Sodium Succinate (Solu-CORTEF INJECTION) 50 mg Q12HR IV 02/06/25 22:00 Levothyroxine Sodium (Synthroid Tablet) 175 mcg QAM@0600 PO 02/07/25 06:00 Oxycodone/ Acetaminophen (Percocet 5/ 325MG Tablet) 1 tab Q6HP PRN PO MODERATE PAIN (4-6 PAIN SCALE) 02/06/25 12:30 02/06/25 13:29 Vancomycin HCl 0 ml @ 0 mls/hr UD IV 02/06/25 12:30 UNV Morphine Sulfate 2 mg Q4HPRN PRN IV SEVERE PAIN (7-10 PAIN SCALE) 02/06/25 12:30 Review of Systems General: Positive for weakness. Denies fever or chills. Respiratory: Positive for shortness of breath and green sputum. Cardiovascular: Denies chest pain or palpitations. Gastrointestinal: Denies abdominal pain, nausea, vomiting. Genitourinary: Positive for suprapubic catheter Musculoskeletal: Positive for bilateral lower extremity swelling and tenderness. Neurologic: Patient alert and oriented 3; no focal deficits reported. Skin: Redness and swelling of both legs, consistent with chronic cellulit is/lymphedema. Vital Signs Vital Signs Date Time Temp Pulse Resp B/P (MAP) Pulse Ox O2 Delivery O2 Flow Rate FiO2 02/06/25 15:30 79 17 129/43 (71) 98 02/06/25 12:00 98.3 98.3 02/06/25 10:00 Room Air* 0 21 Physical Exam General: Alert, oriented 3, no acute distress Cardiovascular: Regular rhythm, no murmurs, no jugular venous distention. Respiratory: Bibasilar crackles. Abdomen: Soft, non-tender, non-distended. Extremities: Significant bilateral swelling, erythema, and tenderness, consistent with lymphedema/chronic cellulitis. Skin: No new open lesions noted. Labs/Diagnostic Data Labs Test 02/06/25 05:20 02/05/25 17:17 02/05/25 16:26 02/05/25 14:48 Range/Units White Blood Count 19.5 H 4.4-10.8 10^3/uL Red Blood Count 3.93 L 4.0-5.20 10^6/uL Hemoglobin 11.0 L 12.2-16.2 g/dL Hematocrit 33.2 L 36.0-46.0 % Mean Corpuscular Volume 84.4 80.0-100.0 fL Mean Corpuscular Hemoglobin 28.0 28.0-32.0 pg Mean Corpuscular Hemoglobin Concent 33.2 32.0-36.0 g/dL Red Cell Distribution Width 18.3 H 11.8-14.3 % Platelet Count 261 140-450 10^3/uL Mean Platelet Volume 8.3 6.9-10.8 fL Neutrophils (%) (Auto) 83.9 H 37.0-80.0 % Lymphocytes (%) (Auto) 10.8 10.0-50.0 % Monocytes (%) (Auto) 4.5 0.0-12.0 % Eosinophils (%) (Auto) 0.7 0.0-7.0 % Basophils (%) (Auto) 0.1 0.0-2.0 % Neutrophils # (Auto) 16.3 H 1.6-8.6 10 ^3/uL Lymphocytes # (Auto) 2.1 0.4-5.4 10 ^3/uL Monocytes # (Auto) 0.9 0-1.3 10 ^3/uL Eosinophils # (Auto) 0.1 0-0.8 10 ^3/uL Basophils # (Auto) 0 0-0.2 10 ^3/uL Nucleated Red Blood Cells 0.0 % Sodium Level 134 L 136-145 mmol/L Potassium Level 3.6 3.5-5.1 mmol/L Chloride Level 94 L 98-107 mmol/L Carbon Dioxide Level 28 20-31 mmol/L Anion Gap 12 5-15 Blood Urea Nitrogen 52 #H 9-23 mg/dL Creatinine 1.56 H 0.550-1.02 mg/dL Glomerular Filtration Rate Calc 36 >90 mL/min BUN/Creatinine Ratio 33.3 H 10.0-20.0 Serum Glucose 88 74-106 mg/dL Calcium Level 9.7 8.7-10.4 mg/dL Phosphorus Level 4.3 2.4-5.1 mg/dL Magnesium Level 2.1 1.6-2.6 mg/dL Total Bilirubin 0.6 0.2-1.0 mg/dL Aspartate Amino Transferase (AST) 13 13-40 U/L Alanine Aminotransferase (ALT) 13 7-40 U/L Alkaline Phosphatase 114 46-116 U/L Total Protein 6.4 5.7-8.2 g/dL Albumin 3.7 3.2-4.8 g/dL Vitamin D 25-Hydroxy 32.3 30.0-100 ng/mL Thyroid Stimulating Hormone (TSH) 0.91 0.55-4.78 uIU/mL Parathyroid Hormone (Intact) 30.2 18.4-80.1 pg/mL Troponin I High Sensitivity 13 </=34 ng/L Urine Color Light-yellow Yellow Urine Clarity Clear Clear Urine pH 7.5 5.0-9.0 Urine Specific [place] 1.010 1.001-1.035 Urine Protein Negative Negative Urine Ketones Negative Negative Urine Blood 1+ H Negative /uL Urine Nitrite Negative Negative Urine Bilirubin Negative Negative Urine Urobilinogen Normal Negative mg/dL Urine Leukocyte Esterase 3+ Negative /uL Urine RBC 4 0 - 4 /hpf Urine Microscopic WBC 13 H 0-5 /HPF Urine Squamous Epithelial Cells Few <5 /hpf Urine Amorphous Crystals Few None Seen /hpf Urine Bacteria Few H None Seen /hpf Urine Hyaline Casts Few 0 - 2 /lpf Urine Glucose Normal Normal mg/dL Influenza Type A Antigen Negative Negative Influenza Type B Antigen Negative Negative SARS-CoV-2 Antigen (Rapid) Negative NEGATIVE Test 02/05/25 14:27 Range/Units Prothrombin Time 11.2 9.3-11.8 sec Prothrombin Time INR 1.06 0.9-1.15 Lactic Acid Level 1.8 0.4-2.0 mmol/L C-Reactive Protein High Sensitivity 7.00 H <1.0 mg/dL B-Type Natriuretic Peptide 185.43 0-100 pg/mL Microbiology Date/Time Source Procedure Growth Status 02/05/25 14:27 Blood Blood Culture - Preliminary Resulted Assessment Acute kidney injury likely hemodynamic mediated etiology in the setting of shock Septic shock likely due to UTI Sepsis associated acute kidney injury likely due to VMN Pulmonary edema likely multifactorial due to CHF exacerbation and akute kidney injury in the setting of septic shock Chronic suprapubic catheter use Bilateral lower extremity Cellulitis in the setting of chronic lymphedema Renal cyst on US Plan Discontinue IV fluids given signs of fluid overload. Kidney ultrasound Monitor daily BUN, creatinine, and electrolytes. Monitor urine output closely Chest physiotherapy and pulmonary hygiene as needed. Continue empiric antibiotic therapy suprapubic catheter change, as outpt Echocardiogram pending. Case discussed with code status: full code Addendum Patient seen and examined, plan discussed with resident. Agree with above, we will follow closely Patient is off vasopressors hold IV fluids as blood pressure is stable Plan discussed with: Patient MARIA C SHANE Feb 06, 2025 16:02 GONZALO SANCHEZ MD Feb 06, 2025 19:13
[2025-02-06] MEDS ORDERED: VANCOMYCIN 1.5GM/300ML 300 ML IV ONE (18:45)
[2025-02-06] MEDS: VANCOMYCIN 1.5GM/300ML 300 ML IV ONE (21:14)
[2025-02-06] MEDS: HYDROCORTISONE SOD SUCC 100 MG/2ML INJ VIAL IV SCH (22:14)
[2025-02-07] VITALS (10 sets, daily range): BP systolic 115–155; BP diastolic 48–82; PULSE 18–82; RESP 17–20; TEMP 97.7–98.5; O2SAT 95–99
[2025-02-07] MEDS ORDERED: OXY5T GT (00:15)
[2025-02-07] MEDS ORDERED: [UNRECOGNIZED DRUG - CODE] XX (00:15)
[2025-02-07] MEDS ORDERED: MONT-8 PO (00:16)
[2025-02-07] MEDS ORDERED: DOCU-94 PO (00:17)
[2025-02-07] MEDS: LEVOTHYROXINE SODIUM 50 MCG TAB PO SCH (06:19)
--- NOTE | 2025-02-07 06:53 | DVH ---
EXAM: XR Chest, 1 View CLINICAL INDICATION: chf TECHNIQUE: Frontal view of the chest. COMPARISON: XY CHEST PORTABLE on DOS: 02/05/25, CHEST PORTABLE on DOS: 05/30/22, CHEST PORTABLE on DO S: 05/29/22 FINDINGS: LUNGS AND PLEURAL SPACES: See below. HEART: Cardiomegaly with mild congestion. MEDIASTINUM: Unremarkable. Normal mediastinal contour. BONES/JOINTS: Unremarkable. No acute fracture. OTHER FINDINGS: . . . IMPRESSION: Cardiomegaly with mild congestion.
[2025-02-07 06:58] LABS: Basophils # (auto) 0 10 ^3/uL (0-0.2); Basophils % (auto) 0.3 % (0.0-2.0); Eosinophils # (auto) 0 10 ^3/uL (0-0.8); Eosinophils % (auto) 0.1 % (0.0-7.0); Hematocrit 34.7 % (36.0-46.0); Hemoglobin 11.6 g/dL (12.2-16.2); Lymphocytes # (auto) 1.3 10 ^3/uL (0.4-5.4); Lymphocytes % (auto) 9.8 % (10.0-50.0); Mean Corpuscular Hemoglobin 28.4 pg (28.0-32.0); Mean Corpuscular Hgb Conc. 33.5 g/dL (32.0-36.0); Mean Corpuscular Volume 84.8 fL (80.0-100.0); Monocytes # (auto) 0.5 10 ^3/uL (0-1.3); Monocytes % (auto) 3.6 % (0.0-12.0); Neutrophils # (auto) 11.1 10 ^3/uL (1.6-8.6); Neutrophils % (auto) 86.2 % (37.0-80.0); Nucleated Red Blood Cells % 0.1 %; Platelet Count (auto) 273 10^3/uL (140-450); Red Blood Cells 4.09 10^6/uL (4.0-5.20); Red Cell Distribution Width 18.4 % (11.8-14.3); White Blood Cell 12.8 10^3/uL (4.4-10.8)
[2025-02-07 07:16] LABS: Anion Gap 9 (5-15); BUN/Creatinine Ratio 23.1 (10.0-20.0); Calcium 9.8 mg/dL (8.7-10.4); Carbon Dioxide 30 mmol/L (20-31); Glucose 99 mg/dL (74-106); Sodium 136 mmol/L (136-145)
[2025-02-07 07:22] LABS: Blood Urea Nitrogen 25 mg/dL (9-23); Chloride 97 mmol/L (98-107); Potassium 3.4 mmol/L (3.5-5.1)
[2025-02-07] MEDS: POTASSIUM EFFERVESENT TAB 25 MEQ PO ONE (09:43)
--- NOTE | 2025-02-07 10:39 | DVHPN2 ---
Progress Note Date Seen: Feb 07, 2025 Medical Necessity Reason Pt with a Central, PICC or Fol: No Subjective Patient reports: No new complaints Review of Systems: HEENT:Normal, CVS:Normal, RESPIRATORY:Normal, GI:Normal, :Normal, MSK:Normal, NEURO:Normal Objective vital signs Vital Sign Date Time Temp Pulse Resp B/P (MAP) Pulse Ox O2 Delivery O2 Flow Rate FiO2 02/07/25 09:00 98.3 73 20 151/67 (95) 98 98.3 02/07/25 06:27 Nasal Cannula 1.0 02/07/25 06:27 24 Total Intake and Output 02/06/25 02/06/25 02/07/25 15:00 23:00 07:00 Intake Total 580 ml 700 ml 200 ml Output Total 1400 ml 600 ml 1900 ml Balance -820 ml 100 ml -1700 ml medications Current Medications Medications Dose Ordered Sig/Gricelda Route Start Time Stop Time Status Last Admin Dose Admin Piperacillin Sod/ Tazobactam Sod 100 ml @ 100 mls/hr Q8H IV 02/05/25 16:30 02/07/25 09:39 100 MLS/HR Apixaban 5 mg BID PO 02/05/25 22:00 02/07/25 09:40 5 MG Sodium Chloride 10 ml Q8HR IV 02/05/25 22:00 02/07/25 06:20 10 ML Docusate Sodium 100 mg BIDPRN PRN PO 02/05/25 16:30 Acetaminophen 650 mg Q6HP PRN PO 02/05/25 16:30 02/06/25 03:38 650 MG Ondansetron HCl 4 mg Q4HP PRN IV 02/05/25 16:30 Levothyroxine Sodium 175 mcg QAM@0600 PO 02/07/25 06:00 02/07/25 06:19 175 MCG Oxycodone/ Acetaminophen 1 tab Q6HP PRN PO 02/06/25 12:30 02/07/25 08:37 1 TAB Vancomycin HCl 0 ml @ 0 mls/hr UD IV 02/06/25 12:30 Morphine Sulfate 2 mg Q4HPRN PRN IV 02/06/25 12:30 Hydrocortisone 40 mg BID PO 02/07/25 22:00 UNV Examination: GENERAL:Normal, HEENT:Normal, NECK:Normal, LUNGS:Normal, CVS:Normal, ABDOMEN:Normal, MSK:Normal, MSK:Abnormal (CELLULITIS BOTH LEGS), SKIN:Normal, NEURO:Normal, :Normal, :Abnormal (SUPRA PUBIC CATH) laboratory and microbiology Laboratory Tests 02/07/25 06:00 Test 02/07/25 06:00 Range/Units Serum Glucose 99 74-106 mg/dL Microbiology Date/Time Source Procedure Growth Status 02/05/25 14:27 Blood Blood Culture - Preliminary Resulted Problem List/Assessment/Plan Problem List/Assessment/Plan 1. Septic shock with ? urinary tract infection: iv antibiotics, was on levophed 2. Cellulitis of both lower extremities. 3. Dorado's disease: PO hydrocortisone 4. Hypothyroidism: on levothyroxine 5. Morbid obesity. 6. Chronic suprapubic catheter : urology consult for change, changed 7 h/o Hypertension. 8. Acute renal failure, likely vasomotor nephropathy. 9 h/o a fib #10 sleep apnea: bipap #11 ? acute diastolic heart failure advance care planning- full code- time spent 19 mins Plan discussed with: Patient My Orders My Orders Orders - JESSA GREER MD Procedure Category Date Status Time * Urology Consult CONS 02/06/25 Transmitted 12:21 Levothyroxine Tablet PHA 02/07/25 In Process (Synthroid Tablet) 06:00 Oxycodone W/ Acet PHA 02/06/25 In Process 5/325mg Tab (Percocet 12:30 Vancomycin Per PHA 02/06/25 In Process Pharmacy 12:30 Urine Bacterial PAULA 02/06/25 Logged Culture 12:21 Morphine Sulfate PHA 02/06/25 In Process Injection 12:30 Chest Portable XY 02/07/25 Resulted 06:00 Blood Culture PAULA 02/07/25 In Process 05:00 Bipap/Cpap For Sleep RT 02/06/25 Logged Apnea 12:21 * Wound Consult CONS 02/06/25 Transmitted Hydrocortisone Tablet PHA 02/07/25 Logged (Cortef Tablet) 22:00 Pt Request For Service PT 02/07/25 Transmitted 10:33 Potassium Er Tablet PHA 02/07/25 Logged (Klor-Con Tablet) 10:45 Basic Metabolic Panel LAB 02/08/25 Verified 06:00 Complete Blood Count LAB 02/08/25 Verified 06:00 Date of Service: Feb 07, 2025 Billing Provider: JESSA GREER MD Common Visit Codes: 49259-[id number] INP/OBS CARE(HIGH) Secondary Visit Codes: 27135-[id number] CARE PLAN 30 MINUTES JESSA GREER MD Feb 07, 2025 10:39
[2025-02-07] MEDS ORDERED: OXY20CRT PO (10:43)
[2025-02-07] MEDS: POTASSIUM CHL 20 Meq TABLET PO ONE (13:17)
[2025-02-07] MEDS: GABAPENTIN 100 MG CAP PO SCH (13:18)
[2025-02-07] MEDS: VANCOMYCIN 1.5GM/300ML 300 ML IV SCH (15:59)
--- NOTE | 2025-02-07 17:02 | DVHPN2 ---
Progress Note Date Seen: Feb 07, 2025 Resident Creating Document: MARIA C SHANE RESIDENT Medical Necessity Reason Pt with a Central, PICC or Fol: No Subjective Review of Systems Patient is seen and examined at bedside, patient is still complaining of generalized pain, but recent basic metabolic panel showed kidney function is improving as the underlying condition is being treated. As the kidney function is almost normalized we are signing off at this time, there is no further workup indicated if any other new concern arises feel free to reach out. Patient reports: No new complaints Changes from previous H/P or p: No Changes Objective vital signs Vital Sign Date Time Temp Pulse Resp B/P (MAP) Pulse Ox O2 Delivery O2 Flow Rate FiO2 02/07/25 13:00 98.1 76 17 115/71 (86) 95 98.1 02/07/25 10:00 Nasal Cannula* 3 32 Total Intake and Output 02/06/25 02/06/25 02/07/25 15:00 23:00 07:00 Intake Total 580 ml 700 ml 200 ml Output Total 1400 ml 600 ml 1900 ml Balance -820 ml 100 ml -1700 ml medications Current Medications Medications Dose Ordered Sig/Gricelda Route Start Time Stop Time Status Last Admin Dose Admin Piperacillin Sod/ Tazobactam Sod 100 ml @ 100 mls/hr Q8H IV 02/05/25 16:30 02/07/25 09:39 100 MLS/HR Apixaban 5 mg BID PO 02/05/25 22:00 02/07/25 09:40 5 MG Sodium Chloride 10 ml Q8HR IV 02/05/25 22:00 02/07/25 13:18 10 ML Docusate Sodium 100 mg BIDPRN PRN PO 02/05/25 16:30 Acetaminophen 650 mg Q6HP PRN PO 02/05/25 16:30 02/06/25 03:38 650 MG Ondansetron HCl 4 mg Q4HP PRN IV 02/05/25 16:30 Levothyroxine Sodium 175 mcg QAM@0600 PO 02/07/25 06:00 02/07/25 06:19 175 MCG Oxycodone/ Acetaminophen 1 tab Q6HP PRN PO 02/06/25 12:30 02/07/25 15:54 1 TAB Vancomycin HCl 0 ml @ 0 mls/hr UD IV 02/06/25 12:30 Morphine Sulfate 2 mg Q4HPRN PRN IV 02/06/25 12:30 Hydrocortisone 40 mg BID PO 02/07/25 22:00 Gabapentin 100 mg TID PO 02/07/25 14:00 02/07/25 13:18 100 MG Vancomycin HCl 300 ml @ 200 mls/hr Q12H IV 02/07/25 15:00 02/07/25 15:59 200 MLS/HR Examination: GENERAL:Normal, HEENT:Normal, NECK:Normal, LUNGS:Normal, CVS:Normal, ABDOMEN:Normal, MSK:Abnormal, SKIN:Normal, NEURO:Normal, :Normal laboratory and microbiology Laboratory Tests 02/07/25 06:00 Test 02/07/25 06:00 Range/Units Serum Glucose 99 74-106 mg/dL Microbiology Date/Time Source Procedure Growth Status 02/05/25 14:27 Blood Blood Culture - Preliminary Resulted Problem List/Assessment/Plan Problem List/Assessment/Plan Assessment: Acute kidney injury likely hemodynamic mediated etiology in the setting of shock Septic shock likely due to UTI Sepsis associated acute kidney injury likely due to VMN Pulmonary edema likely multifactorial due to CHF exacerbation and akute kidney injury in the setting of septic shock Chronic suprapubic catheter use Bilateral lower extremity Cellulitis in the setting of chronic lymphedema Renal cyst on US Plan Monitor daily BUN, creatinine, and electrolytes. Monitor urine output closely Continue empiric antibiotic therapy suprapubic catheter change, as outpt Thank you for allowing us participate in this case, there is no further workup indicated at this time we are signing off. Case discussed with code status: full code Addendum Patient seen and examined, plan discussed with resident. Agree with above, we will follow closely will sign off the case /pls reconsult as needed Plan discussed with: Patient HILARIO EMARIA C Feb 07, 2025 17:02 GONZALO SANCHEZ MD Feb 07, 2025 19:16
[2025-02-07] MEDS ORDERED: ALBU2TAB11 IN (18:44)
[2025-02-07] MEDS ORDERED: AMIO200T33 PO (18:52)
[2025-02-07] MEDS ORDERED: DOCU-94 (18:52)
[2025-02-07] MEDS ORDERED: CETI10TA2 PO (18:52)
[2025-02-07] MEDS ORDERED: CLON0.1T PO (18:52)
[2025-02-07] MEDS ORDERED: LEVO175T4 PO (18:58)
[2025-02-07] MEDS ORDERED: FOLI-119 PO (18:58)
[2025-02-07] MEDS ORDERED: FLUT1SUS (18:58)
[2025-02-07] MEDS ORDERED: LOSA-534 PO (18:58)
[2025-02-07] MEDS ORDERED: APIX5TAB PO (18:58)
[2025-02-07] MEDS ORDERED: LORA-1121 PO (18:58)
[2025-02-07] MEDS ORDERED: HYDR-4792 PO (18:58)
[2025-02-07] MEDS ORDERED: GABA-1308 PO (18:58)
[2025-02-07] MEDS ORDERED: HYDROCORTISONE 10 MG TAB PO SCH (22:00)
[2025-02-08] VITALS (9 sets, daily range): BP systolic 106–141; BP diastolic 51–65; PULSE 18–82; RESP 18–19; TEMP 97.5–98.1; O2SAT 92–99
[2025-02-08 06:22] LABS: Basophils # (auto) 0 10 ^3/uL (0-0.2); Basophils % (auto) 0.3 % (0.0-2.0); Eosinophils # (auto) 0.2 10 ^3/uL (0-0.8); Eosinophils % (auto) 2.3 % (0.0-7.0); Hematocrit 32.2 % (36.0-46.0); Hemoglobin 10.7 g/dL (12.2-16.2); Lymphocytes # (auto) 2.9 10 ^3/uL (0.4-5.4); Lymphocytes % (auto) 27.5 % (10.0-50.0); Mean Corpuscular Hemoglobin 28.4 pg (28.0-32.0); Mean Corpuscular Hgb Conc. 33.2 g/dL (32.0-36.0); Mean Corpuscular Volume 85.8 fL (80.0-100.0); Monocytes # (auto) 0.9 10 ^3/uL (0-1.3); Monocytes % (auto) 8.4 % (0.0-12.0); Neutrophils # (auto) 6.5 10 ^3/uL (1.6-8.6); Neutrophils % (auto) 61.5 % (37.0-80.0); Platelet Count (auto) 259 10^3/uL (140-450); Red Blood Cells 3.75 10^6/uL (4.0-5.20); White Blood Cell 10.6 10^3/uL (4.4-10.8)
[2025-02-08 06:30] LABS: Anion Gap 7 (5-15); Chloride 101 mmol/L (98-107); Sodium 140 mmol/L (136-145)
[2025-02-08 06:31] LABS: Calcium 9.7 mg/dL (8.7-10.4)
[2025-02-08 06:36] LABS: BUN/Creatinine Ratio 18.5 (10.0-20.0); Blood Urea Nitrogen 17 mg/dL (9-23); Glucose 79 mg/dL (74-106)
[2025-02-08 06:39] LABS: Carbon Dioxide 32 mmol/L (20-31); Potassium 3.1 mmol/L (3.5-5.1)
--- NOTE | 2025-02-08 07:54 | DVHSR ---
APPROVED REPORT EXAM: Two-dimensional and M-mode echocardiogram with Doppler and color Doppler. Blood Pressure: 124/34 mmHg INDICATION Eval for chf exacerbation RISK FACTORS Obesity: Height: 5'6", Weight: 399 DIMENSIONS LVDd5.0 (3.8-5.7cm)LA (2D)4.9 (1.9-4.0cm)Aortic Root3.3 (2.0-3.7cm) LVDs3.6 (2.5-4.0cm)LA (MM) (1.9-4.0cm)Aortic Cusp Exc1.8 (1.5-2.0cm) EF (%) 55.0 (55-70%)Rt. Atrium3.7 (1.9-4.0cm)Asc. Aorta cm IVSd1.0 (0.7-1.1cm)RV (D) (1.8-2.4cm) PWd1.0 (0.7-1.1cm) Mitral Valve MitralMitral Stenosis E/A ratio0.02D MVAcm2 Aortic Valve Aortic ValveAortic Stenosis LVOT Diameter1.8 (1.8-2.4cm)Doppler AVAcm2 Pulmonic Valve V21.31m/s Other Information Quality : Technically LimitedRhythm : Technically limited study due to body habitus, patient lying flat. Conclusion lvef 55% mild LVH normal rv function RV enlarged pericardial effusion trivial
[2025-02-08] MEDS: POTASSIUM EFFERVESENT TAB 25 MEQ PO ONE (09:03)
[2025-02-08] MEDS: POTASSIUM CHL 20 Meq TABLET PO ONE (10:45)
--- NOTE | 2025-02-08 10:58 | DVHPN2 ---
Progress Note Date Seen: Feb 08, 2025 Medical Necessity Reason Pt with a Central, PICC or Fol: No Subjective Patient reports: No new complaints Review of Systems: HEENT:Normal, CVS:Normal, RESPIRATORY:Normal, GI:Normal, :Normal, MSK:Normal, NEURO:Normal Objective vital signs Vital Sign Date Time Temp Pulse Resp B/P (MAP) Pulse Ox O2 Delivery O2 Flow Rate FiO2 02/08/25 08:58 97.5 78 18 133/65 (87) 95 97.5 02/07/25 20:00 Nasal Cannula* 3 32 Total Intake and Output 02/07/25 02/07/25 02/08/25 15:00 23:00 07:00 Intake Total 1250 ml 240 ml Output Total 700 ml 1100 ml Balance 550 ml -860 ml medications Current Medications Medications Dose Ordered Sig/Gricelda Route Start Time Stop Time Status Last Admin Dose Admin Piperacillin Sod/ Tazobactam Sod 100 ml @ 100 mls/hr Q8H IV 02/05/25 16:30 02/08/25 09:02 100 MLS/HR Apixaban 5 mg BID PO 02/05/25 22:00 02/08/25 09:02 5 MG Sodium Chloride 10 ml Q8HR IV 02/05/25 22:00 02/08/25 06:00 10 ML Docusate Sodium 100 mg BIDPRN PRN PO 02/05/25 16:30 Acetaminophen 650 mg Q6HP PRN PO 02/05/25 16:30 02/06/25 03:38 650 MG Ondansetron HCl 4 mg Q4HP PRN IV 02/05/25 16:30 Levothyroxine Sodium 175 mcg QAM@0600 PO 02/07/25 06:00 02/08/25 06:47 175 MCG Oxycodone/ Acetaminophen 1 tab Q6HP PRN PO 02/06/25 12:30 02/08/25 06:48 1 TAB Vancomycin HCl 0 ml @ 0 mls/hr UD IV 02/06/25 12:30 Morphine Sulfate 2 mg Q4HPRN PRN IV 02/06/25 12:30 Gabapentin 100 mg TID PO 02/07/25 14:00 02/08/25 06:00 100 MG Vancomycin HCl 300 ml @ 200 mls/hr Q12H IV 02/07/25 15:00 02/08/25 03:44 200 MLS/HR Examination: GENERAL:Normal, HEENT:Normal, NECK:Normal, LUNGS:Normal, CVS:Normal, ABDOMEN:Normal, MSK:Normal, MSK:Abnormal (CELLULITIS, EDEMA+), SKIN:Normal, NEURO:Normal, :Normal laboratory and microbiology Laboratory Tests 02/08/25 05:42 Test 02/08/25 05:42 Range/Units Serum Glucose 79 74-106 mg/dL Microbiology Date/Time Source Procedure Growth Status 02/07/25 06:00 Blood Blood Culture - Preliminary NO GROWTH AFTER 24 HOURS OF INCUBATION. Resulted Problem List/Assessment/Plan Problem List/Assessment/Plan 1. Septic shock with urinary tract infection: iv antibiotics, was on levophed 2. Cellulitis of both lower extremities. 3. Alek's disease: PO hydrocortisone 4. Hypothyroidism: on levothyroxine 5. Morbid obesity. 6. Chronic suprapubic catheter : urology consult for change, changed 7 h/o Hypertension. 8. Acute renal failure, likely vasomotor nephropathy: improved 9 h/o a fib: on eliquis #10 sleep apnea: bipap #11 ? acute diastolic heart failure: lasix #12 chronic pain advance care planning- full code- time spent 19 mins Plan discussed with: Patient My Orders My Orders Orders - JESSA GREER MD Procedure Category Date Status Time Cleanse Wound With DEVAUGHN 02/07/25 In Process Mild Soap A 10:08 Cleanse Wound With DEVAUGHN 02/07/25 In Process Wound Clean 10:08 * Dietary Consult CONS 02/07/25 Transmitted 13:00 Vancomycin 1.5gm/300ml PHA 02/07/25 In Process 15:00 Vancomycin,Trough LAB 02/09/25 Verified 14:00 Vancomycin Per DEVAUGHN 02/07/25 In Process Pharmacy Protoc 14:30 Bipap/Cpap For Sleep RT 02/07/25 Logged Apnea 14:42 Gabapentin Capsule PHA 02/08/25 Verified (Neurontin Capsule) 12:00 Amiodarone Tablet PHA 02/08/25 Verified (Cordarone Tablet) 10:45 Amiodarone Tablet PHA 02/09/25 Verified (Cordarone Tablet) 10:00 Furosemide Tablet PHA 02/09/25 Verified (Lasix Tablet) 10:00 Furosemide Tablet PHA 02/08/25 Verified (Lasix Tablet) 10:45 Date of Service: Feb 08, 2025 Billing Provider: JESSA GREER MD Common Visit Codes: [id number] INP/OBS CARE(HIGH) JESSA GREER MD Feb 08, 2025 10:58
[2025-02-08] MEDS: OXYCODONE W/ ACETAMINOPHEN 5/325MG TABLET PO PRN (13:33)
[2025-02-08] MEDS: GABAPENTIN 400 MG CAP PO SCH (13:33)
[2025-02-08] MEDS: FUROSEMIDE 40 MG TAB PO ONE (13:34)
[2025-02-08] MEDS: AMIODARONE HCL 200 MG TAB PO ONE (13:37)
[2025-02-08] MEDS: traZODone HCL 50 MG TAB PO SCH (21:29)
[2025-02-08] MEDS: HYDROCORTISONE 10 MG TAB PO SCH (21:30)
[2025-02-08] MEDS: oxyCODONE ER 10 MG TAB PO SCH (21:31)
[2025-02-08] MEDS: MONTELUKAST SODIUM 10 MG TAB PO SCH (21:34)
[2025-02-09] VITALS (7 sets, daily range): BP systolic 107–126; BP diastolic 47–84; PULSE 18–68; RESP 18–20; TEMP 97.8–99.3; O2SAT 90–93
[2025-02-09 06:25] LABS: Basophils # (auto) 0 10 ^3/uL (0-0.2); Basophils % (auto) 0.3 % (0.0-2.0); Eosinophils # (auto) 0.1 10 ^3/uL (0-0.8); Eosinophils % (auto) 0.8 % (0.0-7.0); Hematocrit 32.6 % (36.0-46.0); Hemoglobin 10.7 g/dL (12.2-16.2); Lymphocytes # (auto) 1.4 10 ^3/uL (0.4-5.4); Lymphocytes % (auto) 15.9 % (10.0-50.0); Mean Corpuscular Hemoglobin 28.3 pg (28.0-32.0); Mean Corpuscular Hgb Conc. 32.7 g/dL (32.0-36.0); Mean Corpuscular Volume 86.6 fL (80.0-100.0); Monocytes # (auto) 0.6 10 ^3/uL (0-1.3); Monocytes % (auto) 6.8 % (0.0-12.0); Neutrophils # (auto) 6.5 10 ^3/uL (1.6-8.6); Neutrophils % (auto) 76.2 % (37.0-80.0); Platelet Count (auto) 242 10^3/uL (140-450); Red Blood Cells 3.77 10^6/uL (4.0-5.20); Red Cell Distribution Width 18.2 % (11.8-14.3); White Blood Cell 8.6 10^3/uL (4.4-10.8)
[2025-02-09 06:31] LABS: Anion Gap 3 (5-15); Chloride 99 mmol/L (98-107); Potassium 4.2 mmol/L (3.5-5.1); Sodium 137 mmol/L (136-145)
[2025-02-09 06:32] LABS: Calcium 9.2 mg/dL (8.7-10.4)
[2025-02-09 06:35] LABS: Carbon Dioxide 35 mmol/L (20-31)
[2025-02-09 06:37] LABS: Blood Urea Nitrogen 13 mg/dL (9-23); Glucose 119 mg/dL (74-106); Magnesium 1.8 mg/dL (1.6-2.6)
[2025-02-09] MEDS: POTASSIUM CHL 20 Meq TABLET PO SCH (08:55)
[2025-02-09] MEDS: AMIODARONE HCL 200 MG TAB PO SCH (08:56)
[2025-02-09] MEDS: FUROSEMIDE 40 MG TAB PO SCH (08:56)
[2025-02-09] MEDS: SPIRONOLACTONE 25 MG TAB PO SCH (08:57)
--- NOTE | 2025-02-09 11:00 | DVHDS2 ---
Discharge Summary Date of Admission Feb 05, 2025 at 16:21 Date of Discharge: February 09, 2025 Labs/Diagnostic Data: Laboratory Results Test 02/09/25 05:51 02/08/25 00:35 02/07/25 06:00 02/06/25 05:20 White Blood Count 8.6 10^3/uL (4.4-10.8) Red Blood Count 3.77 10^6/uL (4.0-5.20) Hemoglobin 10.7 g/dL (12.2-16.2) Hematocrit 32.6 % (36.0-46.0) Mean Corpuscular Volume 86.6 fL (80.0-100.0) Mean Corpuscular Hemoglobin 28.3 pg (28.0-32.0) Mean Corpuscular Hemoglobin Concent 32.7 g/dL (32.0-36.0) Red Cell Distribution Width 18.2 % (11.8-14.3) Platelet Count 242 10^3/uL (140-450) Mean Platelet Volume 8.1 fL (6.9-10.8) Neutrophils (%) (Auto) 76.2 % (37.0-80.0) Lymphocytes (%) (Auto) 15.9 % (10.0-50.0) Monocytes (%) (Auto) 6.8 % (0.0-12.0) Eosinophils (%) (Auto) 0.8 % (0.0-7.0) Basophils (%) (Auto) 0.3 % (0.0-2.0) Neutrophils # (Auto) 6.5 10 ^3/uL (1.6-8.6) Lymphocytes # (Auto) 1.4 10 ^3/uL (0.4-5.4) Monocytes # (Auto) 0.6 10 ^3/uL (0-1.3) Eosinophils # (Auto) 0.1 10 ^3/uL (0-0.8) Basophils # (Auto) 0 10 ^3/uL (0-0.2) Nucleated Red Blood Cells 0.0 % Sodium Level 137 mmol/L (136-145) Potassium Level 4.2 mmol/L (3.5-5.1) Chloride Level 99 mmol/L (98-107) Carbon Dioxide Level 35 mmol/L (20-31) Anion Gap 3 (5-15) Blood Urea Nitrogen 13 mg/dL (9-23) Creatinine 0.93 mg/dL (0.550-1.02) Glomerular Filtration Rate Calc 67 mL/min (>90) BUN/Creatinine Ratio 14.0 (10.0-20.0) Serum Glucose 119 mg/dL (74-106) Calcium Level 9.2 mg/dL (8.7-10.4) Magnesium Level 1.8 mg/dL (1.6-2.6) POC Glucose 91 mg/dl (70-106) Random Vancomycin Level 11.1 ug/mL (5-10) Phosphorus Level 4.3 mg/dL (2.4-5.1) Total Bilirubin 0.6 mg/dL (0.2-1.0) Aspartate Amino Transferase (AST) 13 U/L (13-40) Alanine Aminotransferase (ALT) 13 U/L (7-40) Alkaline Phosphatase 114 U/L (46-116) Total Protein 6.4 g/dL (5.7-8.2) Albumin 3.7 g/dL (3.2-4.8) Vitamin D 25-Hydroxy 32.3 ng/mL (30.0-100) Thyroid Stimulating Hormone (TSH) 0.91 uIU/mL (0.55-4.78) Parathyroid Hormone (Intact) 30.2 pg/mL (18.4-80.1) Test 02/05/25 17:17 02/05/25 16:26 02/05/25 14:48 02/05/25 14:27 Troponin I High Sensitivity 13 ng/L (</=34) Urine Color Light-yellow (Yellow) Urine Clarity Clear (Clear) Urine pH 7.5 (5.0-9.0) Urine Specific [place] 1.010 (1.001-1.035) Urine Protein Negative (Negative) Urine Ketones Negative (Negative) Urine Blood 1+ /uL (Negative) Urine Nitrite Negative (Negative) Urine Bilirubin Negative (Negative) Urine Urobilinogen Normal mg/dL (Negative) Urine Leukocyte Esterase 3+ /uL (Negative) Urine RBC 4 /hpf (0 - 4) Urine Microscopic WBC 13 /HPF (0-5) Urine Squamous Epithelial Cells Few /hpf (<5) Urine Amorphous Crystals Few /hpf (None Seen) Urine Bacteria Few /hpf (None Seen) Urine Hyaline Casts Few /lpf (0 - 2) Urine Glucose Normal mg/dL (Normal) Influenza Type A Antigen Negative (Negative) Influenza Type B Antigen Negative (Negative) SARS-CoV-2 Antigen (Rapid) Negative (NEGATIVE) Prothrombin Time 11.2 sec (9.3-11.8) Prothrombin Time INR 1.06 (0.9-1.15) Lactic Acid Level 1.8 mmol/L (0.4-2.0) C-Reactive Protein High Sensitivity 7.00 mg/dL (<1.0) B-Type Natriuretic Peptide 185.43 pg/mL (0-100) Other Laboratory Tests 02/09/25 05:51 Brief Hx & Hospital Course: SEE DICTATED NOTE Condition at Discharge: Fair Final Diagnosis/Problems List UTI CELLULITIS Discharge Disposition: Home Discharge Instruct/Medications Diet: Consistent carbohydrate, Cardiac 2g Na,low cholest Activity: No Restrictions, As Tolerated Follow Up/Referral: FU WITH PCP/UROLOGY Medications: RESUME HOME MEDS SCRIPT TO PHARMACY Discharge Statement: "Patient was advised to return to the ER or call 911 if any headaches, dizziness, shortness of breath, chest pain, abdominal pain, bleeding, fevers, or worsening of medical condition. Patient was counseled about treatment plan, medications, possible side effects, patientverbalized understanding. All questions were answered to the best of my ability. This discharge took greater then 30 minutes in planning, reviewing documentation, counseling the patient, and discussing with other team members." ASSESSMENT ASSESSMENT Assessment UTI CELLULITIS Date of Service: February 09, 2025 Billing Provider: JESSA GREER MD Common Visit Codes: [id number] DISCH DAY >30min JESSA GREER MD February 09, 2025 11:00
[2025-02-09] MEDS ORDERED: AUG875T PO (11:01)
--- NOTE | 2025-02-09 11:17 | DVHDS ---
DATE OF DISCHARGE: 02/09/2025 HISTORY OF PRESENT ILLNESS: The patient is a 69-year-old lady who is admitted with history of generalized weakness, nausea, vomiting, and cough. She has history of [place]'s disease, hypertension, recurrent UTIs, suprapubic catheter, atrial fibrillation, and essentially bedbound. HOSPITAL COURSE: The patient was noted to have cellulitis with a urinary tract infection. Her blood cultures were initially contaminated. Repeat blood cultures have been negative. Her white count was elevated to 22,000 that improved to 8000 at the time of discharge. Her creatinine was elevated to 2.2 that improved to 0.9 at the time of discharge. Chest x-ray showed cardiomegaly with interstitial edema. The patient is now improved in the symptoms and will be discharged home to resume her home medications as well as to be on Augmentin 875 mg p.o. b.i.d. for 7 days. The patient had an echocardiogram that showed ejection fraction of 55%. The patient's suprapubic catheter was changed by Urology while in the hospital. FINAL DIAGNOSES: * Septic shock with UTI, with cellulitis of both legs. * [place] Lucie's disease. * Hypothyroidism. * Morbid obesity. * Chronic suprapubic catheter that was changed. * Hypertension. * Acute renal failure, likely vasomotor nephropathy. * History of atrial fibrillation. * Sleep apnea. * Ugeza-co-[id number] diastolic heart failure. * Chronic pain. Time spent on discharge planning, review of plan with the patient and nursing was 38 minutes. MD BETTY Madrigal/PAULA TID: [id number] RECEIPT: [id number]
== END 2025-02-09 18:30 | disposition home or self-care (01) | DRG 871 ==
LOC: ER 13:46 → EDBD 13:46 → OVERFLOW 16:21 → TELE-EAST 02-06 22:22
PROVIDERS: ADMIT Internal Medicine; ATTEND Internal Medicine
PROC: 05HD33Z Insertion of Infusion Device into Right Cephalic Vein, Percutaneous Approach (ICD-10-PCS; 2025-02-05)
PROC: B54MZZA Ultrasonography of Right Upper Extremity Veins, Guidance (ICD-10-PCS; 2025-02-05)
PROC: 5A09357 Assistance with Respiratory Ventilation, Less than 24 Consecutive Hours, Continuous Positive Airway Pressure (ICD-10-PCS; principal; 2025-02-06)
DX: A41.9 Sepsis, unspecified organism (principal); I50.33 Acute on chronic diastolic (congestive) heart failure; R65.21 Severe sepsis with septic shock; N17.0 Acute kidney failure with tubular necrosis; N39.0 Urinary tract infection, site not specified; L03.116 Cellulitis of left lower limb; L03.115 Cellulitis of right lower limb; E87.1 Hypo-osmolality and hyponatremia; E27.1 Primary adrenocortical insufficiency; I13.0 Hypertensive heart and chronic kidney disease with heart failure and stage 1 through stage 4 chronic kidney disease, or unspecified chronic kidney disease; Z68.44 Body mass index [BMI] 60.0-69.9, adult; Z20.822 Contact with and (suspected) exposure to COVID-19; N18.9 Chronic kidney disease, unspecified; E66.01 Morbid (severe) obesity due to excess calories; E11.22 Type 2 diabetes mellitus with diabetic chronic kidney disease; I48.91 Unspecified atrial fibrillation; E87.6 Hypokalemia; E03.9 Hypothyroidism, unspecified; G47.30 Sleep apnea, unspecified; G89.29 Other chronic pain; N28.1 Cyst of kidney, acquired; I89.0 Lymphedema, not elsewhere classified; Z96.653 Presence of artificial knee joint, bilateral; Z88.6 Allergy status to analgesic agent; Z88.4 Allergy status to anesthetic agent; Z91.040 Latex allergy status; Z79.899 Other long term (current) drug therapy; Z83.3 Family history of diabetes mellitus
CPT/HCPCS: 36415; 71045; 76775; 80048; 80053; 80202; 81001; 82306; 82962; 83605; 83735; 83880; 83970; 84100; 84443; 84484; 85025; 85610; 86141; 87040; 87077; 87186; 87426; 87804; 93005; 93306; 96361; 96365; 96368; 97110; 97116; 97163; 97530; 99291; G0378; J2405; J2543; J3480